=== PATIENT | male | born 1935 | race Caucasian/White ===

== ENCOUNTER 2017-05-12 22:13 | Observation (INO) ==
--- NOTE | 2017-05-12 23:12 | Emergency Department Note ---
Disposition Clinical Impression: Multifocal pneumonia, Multifocal atrial tachycardia Disposition: Admitted As Inpatient Condition: Good General Adult HPI - General Chief complaint: ED Altered Mental Status Stated complaint: AMS/leg pain Time Seen by Provider: 05/12/17 22:34 Source: patient Mode of arrival: EMS Limitations: altered mental status Nursing Notes Reviewed: Yes Vital Signs Reviewed: Yes - History of Present Illness HPI Narrative: 81-year-old male who family reports only has a significant medical history for dementia. They report that he is normally ambulatory in the home. They report they brought in the emergency department due to worsening confusion than baseline and fatigue. He was refusing to ambulate. They also noted worsening swelling and in his legs. They deny that he has a cardiac history. No history of atrial fibrillation. Pain Scale: 0 Improves with: nothing Worsens with: nothing Associated symptoms: Reports: denies other symptoms Treatments Prior to Arrival: none - Related Data Home Medications Medication Instructions Recorded Confirmed Donepezil [Aricept] 10 mg PO HS 12/06/15 05/13/17 Multivitamin [Multi-Day Vitamins] 1 tab PO DAILY 12/06/15 05/13/17 Ferrous Sulfate [Iron] 325 tab PO DAILY 05/13/17 05/13/17 Previous Rx's Medication Instructions Recorded Diphenhydramine HCl [Total Allergy] 12.5 mg PO Q8H PRN #20 tablet 12/10/15 Clindamycin HCl 300 mg PO Q6H #40 capsule 10/10/16 Allergies Allergy/AdvReac Type Severity Reaction Status Date / Time levofloxacin AdvReac Rash Verified 05/12/17 22:16 Limitations: ROS unobtainable due to patients medical condition (Dementia) Past Medical History - Past Medical History Medical history: Reports: dementia Surgical history: Reports: appendectomy Psychiatric history: Reports: no psych history - Social History Smoking Status: Former smoker Smokeless Tobacco Status: No Alcohol use: Reports: none Drug use: Reports: none Physical Exam - General Limitations: altered mental status General appearance: alert, in no apparent distress - Head Head exam: atraumatic - Eye Eye exam: Present: normal appearance, PERRL - ENT ENT exam: normal exam, normal oropharynx - Neck Neck exam: Present: normal inspection - Chest Chest inspection: Present: normal inspection - Respiratory Respiratory exam: Present: normal lung sounds bilaterally. Absent: respiratory distress - Cardiovascular Cardiovascular exam: Present: tachycardia, irregular rhythm - Abdominal Exam Abdominal exam: Present: soft, Non-Tender - Extremities Exam Extremities exam: Present: other (2+ pitting edema in bilateral lower extremities. No erythema/warmth) - Neurological Exam Neurological exam: Present: alert, other (dementia, not oriented. Answers questions inappropriately.) - Skin Skin exam: Present: warm, dry Course Course Narrative: His EKG is showing multifocal atrial tachycardia. Heart rate between 100 and 150. Blood pressure is maintained. I will go ahead and treat this with Cardizem. We will also look for possible inciting cause. Multifocal pneumonia is present on CTA. HR is controlled on cardizem. Will admit on cardizem and antibiotics. Vital Signs Temperature 98.5 F 05/12/17 22:16 Pulse Rate 119 05/12/17 22:16 Respiratory Rate 18 05/12/17 22:16 Blood Pressure 137/67 05/12/17 22:16 O2 Sat by Pulse Oximetry 93 05/12/17 22:16 Temperature 98.7 F 05/13/17 05:22 Pulse Rate 95 05/13/17 05:22 Respiratory Rate 16 05/13/17 05:22 Blood Pressure 101/45 05/13/17 05:22 O2 Sat by Pulse Oximetry 94 05/13/17 05:22 Oxygen Delivery Oxygen Delivery Nasal Cannula Medical Decision Making - Medical Records Medical records reviewed: Yes I reviewed the patient's medical records. - Lab Data Lab results reviewed: Yes I reviewed the patient's lab results. Result diagrams: 05/12/17 22:45 05/12/17 22:45 Lab Results 05/12/17 05/12/17 05/12/17 Range/Units 22:45 22:45 22:45 WBC 6.2 (4.3-11.1) K/mcL RBC 4.48 (4.19-5.50) M/mcL Hgb 11.9 L (12.9-16.9) g/dL Hct 37.7 (37.5-50.1) % MCV 84.2 (83.0-100.0) fL MCH 26.6 L (28.0-33.3) pg MCHC 31.6 (31.6-35.5) g/dL RDW 15.5 H (11.5-14.5) % Plt Count 114 L (140-400) K/mcL MPV 9.1 L (9.4-12.4) fL Immature Gran % 0.6 (0-4) % Seg Neutrophils % 87.3 % Lymphocytes % 6.6 % Monocytes % 5.3 % Eosinophils % 0.0 % Basophils % 0.2 % Neutrophils # 5.4 (1.6-8.9) K/mcL Lymphocytes # 0.4 L (0.6-4.6) K/mcL Monocytes # 0.3 (0.0-1.3) K/mcL Eosinophils # 0.0 (0.0-0.6) K/mcL Basophils # 0.0 (0.0-0.2) K/mcL PT 14.8 H (9.4-12.1) Seconds INR 1.4 APTT 31.6 (26.0-36.0) Seconds D-Dimer 1952 H (0-500) ng/mLFEU Sodium 132 L (136-145) mEq/L Potassium 4.1 (3.5-5.1) mEq/L Chloride 100 (98-107) mEq/L Carbon Dioxide 22 L (23-29) mEq/L BUN 20 (8-23) mg/dL Creatinine 0.92 (0.70-1.30) mg/dL Est GFR ( Amer) > 60 (> 60) Est GFR (Non-Af Amer) > 60 (> 60) BUN/Creatinine Ratio 22 (6-26) Glucose 135 H (70-105) mg/dL Calculated Osmolality 279 L (280-300) Calcium 8.9 (8.6-10.3) mg/dL Magnesium 1.6 (1.6-2.6) mg/dL Total Bilirubin 0.7 (0.3-1.0) mg/dL Direct Bilirubin 0.1 (0.0-0.2) mg/dL Indirect Bilirubin 0.6 (0.0-1.2) mg/dL AST 17 (13-39) Units/L ALT 12 (7-52) Units/L Alkaline Phosphatase 69 (34-104) Units/L Troponin I (< 0.04) ng/mL Serum Total Protein 5.9 L (6.4-8.9) g/dL Albumin 3.5 (3.5-5.7) g/dL Globulin 2.4 (2.4-3.5) g/dL Albumin/Globulin Ratio 1.5 (1.1-2.2) TSH 1.739 (0.340-5.600) mcIU/mL Ethyl Alcohol < 10 (0-10) mg/dL 05/12/17 Range/Units 22:45 WBC (4.3-11.1) K/mcL RBC (4.19-5.50) M/mcL Hgb (12.9-16.9) g/dL Hct (37.5-50.1) % MCV (83.0-100.0) fL MCH (28.0-33.3) pg MCHC (31.6-35.5) g/dL RDW (11.5-14.5) % Plt Count (140-400) K/mcL MPV (9.4-12.4) fL Immature Gran % (0-4) % Seg Neutrophils % % Lymphocytes % % Monocytes % % Eosinophils % % Basophils % % Neutrophils # (1.6-8.9) K/mcL Lymphocytes # (0.6-4.6) K/mcL Monocytes # (0.0-1.3) K/mcL Eosinophils # (0.0-0.6) K/mcL Basophils # (0.0-0.2) K/mcL PT (9.4-12.1) Seconds INR APTT (26.0-36.0) Seconds D-Dimer (0-500) ng/mLFEU Sodium (136-145) mEq/L Potassium (3.5-5.1) mEq/L Chloride (98-107) mEq/L Carbon Dioxide (23-29) mEq/L BUN (8-23) mg/dL Creatinine (0.70-1.30) mg/dL Est GFR ( Amer) (> 60) Est GFR (Non-Af Amer) (> 60) BUN/Creatinine Ratio (6-26) Glucose (70-105) mg/dL Calculated Osmolality (280-300) Calcium (8.6-10.3) mg/dL Magnesium (1.6-2.6) mg/dL Total Bilirubin (0.3-1.0) mg/dL Direct Bilirubin (0.0-0.2) mg/dL Indirect Bilirubin (0.0-1.2) mg/dL AST (13-39) Units/L ALT (7-52) Units/L Alkaline Phosphatase (34-104) Units/L Troponin I < 0.03 (< 0.04) ng/mL Serum Total Protein (6.4-8.9) g/dL Albumin (3.5-5.7) g/dL Globulin (2.4-3.5) g/dL Albumin/Globulin Ratio (1.1-2.2) TSH (0.340-5.600) mcIU/mL Ethyl Alcohol (0-10) mg/dL - Radiology Data Radiology results reviewed: Yes I reviewed the patient's radiology results. - EKG Data EKG #1 EKG attestation: Yes I reviewed and interpreted this EKG. When compared to previous EKG there are: changes noted Interpretation: other (Multifocal atrial tachycardia. Nonspecific ST-T wave changes.) Attestation Statement - Attestation Attestation: I examined this patient and my medical decision-making was reviewed with the Resident Physician. I agree with the documented findings, disposition and treatment plan as described except to the extent set forth below. Multifocal atrial tachycardia. Pneumonia. Antibiotics, Cardizem infusion. Admission for further evaluation.
[2017-05-12 23:13] LABS: Basophils % 0.2 %; Hematocrit 37.7 % (37.5-50.1); Hemoglobin 11.9 g/dL (12.9-16.9); Immature Granulocytes % 0.6 % (0-4); Lymphocytes # 0.4 K/mcL (0.6-4.6); Lymphocytes % 6.6 %; Mean Corpuscular HGB Conc 31.6 g/dL (31.6-35.5); Mean Corpuscular Hemoglobin 26.6 pg (28.0-33.3); Mean Corpuscular Volume 84.2 fL (83.0-100.0); Mean Platelet Volume 9.1 fL (9.4-12.4); Monocytes # 0.3 K/mcL (0.0-1.3); Monocytes % 5.3 %; Neutrophils # 5.4 K/mcL (1.6-8.9); Platelet Count 114 K/mcL (140-400); Red Blood Count 4.48 M/mcL (4.19-5.50); Red Cell Distribution Width 15.5 % (11.5-14.5); Segmented Neutrophils % 87.3 %
[2017-05-12 23:19] LABS: INR 1.4; Prothrombin Time 14.8 Seconds (9.4-12.1)
[2017-05-12 23:22] LABS: Activated Partial Thrombo Time 31.6 Seconds (26.0-36.0)
[2017-05-12 23:26] LABS: Ethanol < 10 mg/dL (0-10)
[2017-05-12] MEDS: dilTIAZem HCl 100 MG in D5% in Water 50 ML IVC SCH (23:29)
[2017-05-12 23:38] LABS: Alanine Aminotransferase 12 Units/L (7-52); Albumin 3.5 g/dL (3.5-5.7); Albumin/Globulin Ratio 1.5 (1.1-2.2); Alkaline Phosphatase 69 Units/L (34-104); Aspartate Amino Transferase 17 Units/L (13-39); BUN/Creatinine Ratio 22 (6-26); Bilirubin,Direct 0.1 mg/dL (0.0-0.2); Bilirubin,Indirect 0.6 mg/dL (0.0-1.2); Bilirubin,Total 0.7 mg/dL (0.3-1.0); Blood Urea Nitrogen 20 mg/dL (8-23); Calcium 8.9 mg/dL (8.6-10.3); Carbon Dioxide 22 mEq/L (23-29); Chloride 100 mEq/L (98-107); Globulin 2.4 g/dL (2.4-3.5); Glucose 135 mg/dL (70-105); Osmolality,Calculated 279 (280-300); Potassium 4.1 mEq/L (3.5-5.1); Sodium 132 mEq/L (136-145); Total Protein 5.9 g/dL (6.4-8.9); eGFR For African Americans > 60 (> 60); eGFR For Non-African Americans > 60 (> 60)
[2017-05-12 23:44] LABS: Thyroid Stimulating Hormone 1.739 mcIU/mL (0.340-5.600)
[2017-05-12 23:59] LABS: Magnesium 1.6 mg/dL (1.6-2.6)
[2017-05-13] MEDS ORDERED: Vancomycin 1,500 MG in D5% in Water 250 ML IVPB ONE (02:37)
[2017-05-13] MEDS ORDERED: Piperacillin/Tazobactam 3.375 GM in Water for inj. (sterile) 20 ML IVP ONE (02:37)
[2017-05-13] MEDS: dilTIAZem HCl 100 MG in D5% in Water 50 ML IVC SCH (05:15)
[2017-05-13 05:44] LABS: Bilirubin,Urine Negative (Negative); Blood,Urine Small (Negative); Clarity,Urine Clear (Clear); Color,Urine Yellow (Yellow); Glucose,Urine (UA) Normal (Normal); Ketones,Urine Trace mg/dL (Negative); Leukocyte Esterase,Urine Small (Negative); Nitrite,Urine Negative (Negative); Protein,Urine 30 mg/dL (Neg-Trace); Specific Gravity,Urine > 1.030 (1.010-1.025); Urobilinogen,Urine Normal (Normal)
[2017-05-13 05:47] LABS: Bacteria,Urine None Seen per hpf (None-Few); Hyaline Casts,Urine None Seen per lpf (None-Few); Squamous Epithelial Cell,Urine Many per lpf (None-Few); WBC,Urine 30-50 per hpf (0-3)
--- NOTE | 2017-05-13 06:40 | Internal Med History&Physical ---
Date of Encounter: 05/13/17 Time of Encounter: 06:30 Assessment and Plan (1) Multifocal pneumonia Current visit: Yes Status: Acute Seen on CT, with history of productive cough, shortness of breath. Received vanc and zosyn in ED. Patient lives at home and has not recently been hospitalized, so will deescalate antibiotics to ceftriaxone and azithromycin for CAP. - Ceftrixone and azithromycin - urine legionella and strep pneumo pending - Influenza pending - blood cultures pending - O2 PRN (2) Multifocal atrial tachycardia Current visit: Yes Status: Acute No history of arrhythmia. Rate controlled on diltiazem started in ED - Continue dilt gtt for now - Cardiology consulted, appreciate assistance - Trend troponin (3) Dementia Current visit: No Status: Chronic Acute worsening in setting of illness - Continue home meds Qualifiers: Dementia type: Alzheimer's disease Alzheimer's disease onset: unspecified onset Dementia behavioral disturbance: without behavioral disturbance Qualified Code(s): G30.9 - Alzheimer's disease, unspecified; F02.80 - Dementia in other diseases classified elsewhere without behavioral disturbance (4) Chronic venous stasis dermatitis of both lower extremities Current visit: Yes Status: Acute Improved with elevation, unlikely to have bilateral lower extremity cellulitis Internal Medicine - H&P: HPI Chief complaint: Confusion, shortness of breath Admitted From: Emergency Dept Plans for Post Hospital Care: Home History of present illness: Mr. Reynolds is a 81 year old male with history of dementia who presented to the ED this morning with family after he was found to be confused at home worse than baseline. His son who is present at bedside helps with history - he has apparently had cough and sinus drainage for the past couple of weeks, and his cough has recently worsened. Family has noticed that he is unsteady on his feet which is unusual for him. He has appeared very weak and has been more confused than normal. In the ED he had a CT of the chest which showed no evidence of PE but did show multifocal pneumonia. He was found to be tachycardic on arrival to the ED with MAT on EKG. His lower legs were both painful and red. His family notes that after the treatment he received in the ED (fluids, antibiotics, diltiazem), he is much improved and mentally appears to be almost back to baseline. He denies chest pain, abdominal pain, nausea, vomiting or diarrhea. Past Med Surg Social Fam HX - Past Medical History Medical history: dementia Psychiatric history: no psych history - Past Surgical History Surgical History: appendectomy - Social History Smoking Status: Former smoker Smokeless Tobacco Status: No Alcohol use: none Drug use: none - Family History Mother Adopted: [place]: Opal Reynolds Family Member Ethnicity: Non- Living Status: Age at : 40 Cause of : cancer Hx Family Cardiac Disorders: No Hx Family Respiratory Disorders: No Hx Family Cancer: Yes Hx Family GI Disorders: No Hx Family Endocrine Disorder: No Hx Family Neuromuscular Disorders: No Hx Family Neurologic Disorders: No Hx Family HEENT Disorders: No Hx Family Autoimmune Disorders: No Internal Medicine - H&P: Meds Donepezil [Aricept] 10 mg PO HS 12/06/15 [History] Multivitamin [Multi-Day Vitamins] 1 tab PO DAILY 12/06/15 [History] Diphenhydramine HCl [Total Allergy] 12.5 mg PO Q8H PRN #20 tablet 12/10/15 [Rx] Clindamycin HCl 300 mg PO Q6H #40 capsule 10/10/16 [Rx] Ferrous Sulfate [Iron] 325 tab PO DAILY 05/13/17 [History] 3 Allergy/AdvReac Type Severity Reaction Status Date / Time levofloxacin AdvReac Rash Verified 05/12/17 22:16 All Systems PM: A 10-system review of systems was performed and is negative for pertinent findings except as documented above in the HPI. - Constitutional Vitals: Temp Pulse Resp BP Pulse Ox 98.7 F 95 16 101/45 94 05/13/17 05:22 05/13/17 05:22 05/13/17 05:22 05/13/17 05:22 05/13/17 05:22 General appearance: Present: A&O X 3, pleasant, no acute distress - Head Head exam: Present: atraumatic - Eye Eye exam: Present: EOMI, sclera anicteric - ENT ENT exam: Present: mucous membranes moist - Neck Neck exam general surgery: Present: supple - Respiratory Respiratory exam: Present: CTAB - Cardiovascular Cardiovascular exam: Present: irregular rhythm. Absent: diastolic murmur, gallop, rubs, systolic murmur - GI/Abdominal GI/Abdominal exam: Present: normal bowel sounds, soft. Absent: distended, tenderness - Extremities Exam Extremities exam: Present: pedal edema (1-2+ edema with bilateral redness and warmth to mid calf) - Neurological Exam Neurological exam: Present: no focal deficits - Skin Skin exam: Absent: cyanosis, diaphoretic Internal Med - H&P Results - Labs CBC & Chem 7: 05/12/17 22:45 05/12/17 22:45 Labs: Urine 05/13/17 Range/Units 05:29 Urine Color Yellow (Yellow) Urine Clarity Clear (Clear) Urine pH 6.0 (5.0-8.0) pH Units Ur Specific [place] > 1.030 H (1.010-1.025) Urine Protein 30 H (Neg-Trace) mg/dL Urine Glucose (UA) Normal (Normal) mg/dL
[2017-05-13] MEDS: cefTRIAXone 1,000 MG in Water for inj. (sterile) 20 ML 10 ML IVP SCH (06:53)
[2017-05-13] MEDS: Azithromycin 500 MG in D5% in Water 250 ML IVPB SCH (06:54)
[2017-05-13] MEDS ORDERED: Piperacillin/Tazobactam 3.375 GM/200 ML BAG IVPB ONE (07:00)
--- NOTE | 2017-05-13 09:36 | Internal Med Progress Note ---
Date of Encounter: 05/13/17 Time of Encounter: 09:36 - Assessment and plan (1) Dementia Current Visit: Yes Status: Chronic Assessment and plan: Chronic, stable, continue home meds Qualifiers: Dementia type: Alzheimer's disease Alzheimer's disease onset: unspecified onset Dementia behavioral disturbance: without behavioral disturbance Qualified Code(s): G30.9 - Alzheimer's disease, unspecified; F02.80 - Dementia in other diseases classified elsewhere without behavioral disturbance (2) Multifocal pneumonia Current Visit: Yes Status: Acute Assessment and plan: Continue Cef/Azithromycin-day 1 Follow urine legionella/Strep pneumo Ag Continue supportive care (3) Multifocal atrial tachycardia Current Visit: Yes Status: Acute Assessment and plan: D/C cardizem drip Possibly secondary to pneumonia Transition to po Consider lopressor if blood pressure does not tolerate cardizem Obtain ECHO NO indication for cardiology eval at this time (4) Chronic venous stasis dermatitis of both lower extremities Current Visit: Yes Status: Chronic Assessment and plan: Chronic, stable, no evidence of cellulitis - Subjective Interval history: Seen and evaluated at bedside with spouse Admitted and being managed for multifocal pneumonia and MATs He has a PMH of Dementia, and is mostly at home, no recent admissions - Constitutional Vitals: Temp Pulse Resp BP Pulse Ox 98.3 F 95 18 110/62 92 05/13/17 06:56 05/13/17 06:56 05/13/17 06:56 05/13/17 06:56 05/13/17 06:56 General appearance: Present: A&O X 3, pleasant, no acute distress - Head Head exam: Present: atraumatic, normocephalic - Eye Eye exam: Present: PERRL, conjuntiva pink, sclera anicteric Pupils: Present: PERRL - Neck Neck exam general surgery: Present: supple, trachea midline. Absent: lymphadenopathy - Respiratory Respiratory exam: Present: rhonchi - Cardiovascular Cardiovascular exam: Present: RRR, +S1, +S2. Absent: diastolic murmur, gallop, rubs, systolic murmur - GI/Abdominal GI/Abdominal exam: Present: normal bowel sounds, soft, no peritoneal signs. Absent: distended, tenderness - Extremities Exam Extremities exam: Present: warm, radial pulses palpable and symmetrical. Absent : calf tenderness, cyanotic, pedal edema - Neurological Exam Neurological exam: Present: alert, CN II-XII intact, oriented X3, no focal deficits. Absent: pronater drift, facial droop, speech deficit - Skin Skin exam: Present: dry, intact Internal Medicine: Result - Labs CBC & Chem 7: 05/12/17 22:45 05/12/17 22:45 Labs: Cardiac Enzymes 05/13/17 Range/Units 07:06 Troponin I < 0.03 (< 0.04) ng/mL Urine 05/13/17 Range/Units 05:29 Urine Color Yellow (Yellow) Urine Clarity Clear (Clear) Urine pH 6.0 (5.0-8.0) pH Units Ur Specific [place] > 1.030 H (1.010-1.025) Urine Protein 30 H (Neg-Trace) mg/dL Urine Glucose (UA) Normal (Normal) mg/dL - ABG Interpretation ABG results: PT/INR, D-dimer PT 14.8 Seconds (9.4-12.1) H 05/12/17 22:45 D-Dimer 1952 ng/mLFEU (0-500) H 05/12/17 22:45 Consult Discharge Plan - Plan Referrals: Jayla Recinos, [employer] [Primary Care Provider] - (web request sent on 05/13/17)
[2017-05-13] MEDS: *HR* Heparin 5,000 UNIT/ML VIAL SQ SCH ×3 (09:57→20:42)
[2017-05-13] MEDS ORDERED: Haloperidol Lactate 5 MG/ML VIAL IVP PRN (14:50)
[2017-05-14] MEDS: *HR* Heparin 5,000 UNIT/ML VIAL SQ SCH (05:31)
[2017-05-14 05:42] LABS: Basophils % 0.3 %; Monocytes % 6.7 %
[2017-05-14 05:44] LABS: Eosinophils % 0.6 %; Hematocrit 32.3 % (37.5-50.1); Hemoglobin 10.2 g/dL (12.9-16.9); Immature Granulocytes % 1.5 % (0-4); Immature Platelets 2.7 % (1.1-6.1); Lymphocytes # 0.4 K/mcL (0.6-4.6); Lymphocytes % 11.8 %; Mean Corpuscular HGB Conc 31.6 g/dL (31.6-35.5); Mean Corpuscular Hemoglobin 26.4 pg (28.0-33.3); Mean Corpuscular Volume 83.7 fL (83.0-100.0); Mean Platelet Volume 10.2 fL (9.4-12.4); Monocytes # 0.2 K/mcL (0.0-1.3); Neutrophils # 2.6 K/mcL (1.6-8.9); Red Blood Count 3.86 M/mcL (4.19-5.50); Red Cell Distribution Width 15.7 % (11.5-14.5); Segmented Neutrophils % 79.1 %
[2017-05-14 05:54] LABS: Platelet Count 97 K/mcL (140-400)
[2017-05-14 05:56] LABS: BUN/Creatinine Ratio 23 (6-26); Blood Urea Nitrogen 19 mg/dL (8-23); Calcium 8.2 mg/dL (8.6-10.3); Carbon Dioxide 26 mEq/L (23-29); Chloride 103 mEq/L (98-107); Glucose 101 mg/dL (70-105); Osmolality,Calculated 282 (280-300); Potassium 3.8 mEq/L (3.5-5.1); Sodium 135 mEq/L (136-145); eGFR For African Americans > 60 (> 60); eGFR For Non-African Americans > 60 (> 60)
[2017-05-14] MEDS: Azithromycin 500 MG in D5% in Water 250 ML IVPB SCH (06:15)
[2017-05-14] MEDS: cefTRIAXone 1,000 MG in Water for inj. (sterile) 20 ML 10 ML IVP SCH (06:16)
[2017-05-14 10:33] VITALS: BP 95/50
--- NOTE | 2017-05-14 11:26 | Discharge Summary ---
Date of Encounter: 05/14/17 Time of Encounter: 11:24 - Discharge Diagnosis (1) Multifocal pneumonia Priority: Primary Status: Acute (2) Multifocal atrial tachycardia Priority: Primary Status: Resolved (3) Dementia Priority: Secondary Status: Chronic Qualifiers: Dementia type: Alzheimer's disease Alzheimer's disease onset: unspecified onset Dementia behavioral disturbance: without behavioral disturbance Qualified Code(s): G30.9 - Alzheimer's disease, unspecified; F02.80 - Dementia in other diseases classified elsewhere without behavioral disturbance; F02.80 - Dementia in other diseases classified elsewhere without behavioral disturbance; F02.80 - Dementia in other diseases classified elsewhere without behavioral disturbance (4) Chronic venous stasis dermatitis of both lower extremities Priority: Secondary Status: Chronic - Discharge Medications Prescriptions: Azithromycin [Zithromax Tri-Maxi] 500 mg PO DAILY #3 tablet Cefdinir [Omnicef] 300 mg PO DAILY #5 capsule Metoprolol [Lopressor] 12.5 mg PO BID #60 tablet Home Medications: Donepezil [Aricept] 10 mg PO HS 12/06/15 [History] Multivitamin [Multi-Day Vitamins] 1 tab PO DAILY 12/06/15 [History] Ferrous Sulfate [Iron] 325 tab PO DAILY 05/13/17 [History] Azithromycin [Zithromax Tri-Maxi] 500 mg PO DAILY #3 tablet 05/14/17 [Rx] Cefdinir [Omnicef] 300 mg PO DAILY #5 capsule 05/14/17 [Rx] Metoprolol [Lopressor] 12.5 mg PO BID #60 tablet 05/14/17 [Rx] Allergies/Adverse Reactions: 3 Allergy/AdvReac Type Severity Reaction Status Date / Time levofloxacin AdvReac Rash Verified 05/12/17 22:16 Procedures/tests Complete & Pending: Procedures Performed prior 72 hours Category Date Time Status EKG [ECG 12 lead ECG] [ECG] Stat Y 05/13/17 13:09 Completed EV echocardiogram Routine Y 05/13/17 08:13 Completed Date of admission: 05/13/17 03:06 Primary care physician: Jayla Recinos CNP Consults: 05/13/17 06:31 Consult to Nurse Navigator [CONS] Routine Comment: 05/13/17 08:16 Consult to Occupational Therapy [CONS] Routine Comment: Evaluate, develop and implement POC Reason for Consult: Weakness Consult to Physical Therapy [CONS] Routine Comment: Evaluate, develop and implement POC Reason for Consult: Weakness 05/14/17 06:47 Consult to Warehouse Worker 2Nd Shift [CONS] Routine Reason for SW Consult: is his primary home day care provider. [facility] nurse stated that SS was going to talk to the about options for home health but there was no consult. Discharging clinician: David Matute Anticipated date of discharge: 05/14/17 - Patient Status Disposition: Home, Self-Care Condition: Good Functional capacity at discharge: independent ambulation Overall status at discharge: patient is back to baseline - Ambulatory Orders Ambulatory Orders: ECG holter monitor [ECG] Time Frame: 2 Days, Facility: [facility], Location: Cardiopulmonary Svc - Discharge Instructions Instructions: Metoprolol (By mouth), Azithromycin (By mouth), Cefdinir (By mouth), Atrial Tachycardia (DC), Pneumonia (DC) Follow Up With: Jayla Recinos CNP [Primary Care Provider] - 05/20/17 1:00 pm () - Diet and Activity Activity: resume usual activities as tolerated Diet: low salt diet Interval History: See below Hospital course: Mr. Reynolds is a 81 year old male was admitted for management of community- acquired pneumonia, complicated by multifocal-atrial tachycardia. He has a past medical history of dementia. Patient's tachycardia resolved with institution of intravenous Cardizem, however his blood pressure could not tolerate the oral form of same. Patient was started on intravenous antibiotics-ceftriaxone and azithromycin Urinary Legionella and streptococcal antigen were sent. Patient's urinary workup was positive for streptococcal antigen. Patient is seen and evaluated at the bedside this morning, he reports his inguinal state of health, his reports is back to baseline, clinically he has improved. He has had no fevers, his workup was unremarkable. Echocardiogram done was poor quality. Complete blood count this morning's Center for now. Patient has remained afebrile. He guarding the multifocal atrial tachycardia he has been controlled on metoprolol by mouth. TSH was normal, and electrolytes within normal limits. The patient is stable medically to be discharged to complete 7 days of Omnicef, and 5 days of azithromycin. Primary care doctor. He is discharged also on Holter monitoring for 48 hours. Echocardiogram is recommended to be repeated as outpatient. Plan of care discussed with the patient and his at the bedside who verbalized understanding. Time spent discussing smoking cessation with patient: 3 to 10 minutes - Time Spent with Patient Total time spent providing and/or coordinating discharge services: Greater than 30 minutes - Constitutional Vitals: Temp Pulse Resp BP Pulse Ox 97.8 F 82 16 95/50 93 05/14/17 10:30 05/14/17 10:30 05/14/17 10:30 05/14/17 10:30 05/14/17 10:30 General appearance: Present: A&O X 3, pleasant, no acute distress - Head Head exam: Present: atraumatic, normocephalic - Eye Eye exam: Present: PERRL, conjuntiva pink, sclera anicteric Pupils: Present: PERRL - Neck Neck exam general surgery: Present: supple, trachea midline. Absent: lymphadenopathy - Respiratory Respiratory exam: Present: rhonchi. Absent: accessory muscle use, rales, wheezes - Cardiovascular Cardiovascular exam: Present: RRR, +S1, +S2. Absent: diastolic murmur, gallop, rubs, systolic murmur - GI/Abdominal GI/Abdominal exam: Present: normal bowel sounds, soft, no peritoneal signs. Absent: distended, tenderness - Extremities Exam Extremities exam: Present: warm, radial pulses palpable and symmetrical. Absent : calf tenderness, cyanotic, pedal edema Additional comments: Chronic venostasis dermatitis. No evidence of cellulitis. - Neurological Exam Neurological exam: Present: alert, CN II-XII intact, oriented X3, no focal deficits. Absent: pronater drift, facial droop, speech deficit - Skin Skin exam: Present: dry, intact
--- NOTE | 2017-05-14 19:32 | Electrocardiograph Report ---
[address] [address] Test Date: 2017-05-12 Pat Name: Pete Reynolds Department: 104 Room: 2A13 Gender: M Actimize Architect: SAURAV : 1935 Requested By: Ludwig Louis Order Number: [id number] Reading MD: Rupert Bullock MD Measurements Intervals [place] Rate: 120 P: 55 SD: 116 QRS: -16 QRSD: 91 T: -41 QT: 366 QTc: 437 Interpretive Statements MULTIFOCAL ATRIAL TACHYCARDIA Electronically Signed On 05-14-2017 19:31:28 EST by Rupert Bullock MD
--- NOTE | 2017-05-15 07:25 | Electrocardiograph Report ---
[place] [id number] Test Date: 2017-05-13 Pat Name: Pete Reynolds Department: 112 Room: 2A13 Gender: M Boning Room Worker: DIEGO : 1935 Requested By: David Matute Order Number: [id number] Reading MD: Rupert Bullock MD Measurements Intervals [place] Rate: 112 P: TN: 0 QRS: -15 QRSD: 93 T: 56 QT: 346 QTc: 412 Interpretive Statements ATRIAL FIBRILLATION WITH RAPID VENTRICULAR RESPONSE Electronically Signed On 05-15-2017 7:23:38 EST by Rupert Bullock MD
== END 2017-05-14 14:00 | disposition home or self-care (01) ==
LOC: 2ANU 22:13 → EMEROO 22:13 → 2ANU 05-13 04:42
PROVIDERS: ADMIT Internal Medicine; ATTEND Internal Medicine

== ENCOUNTER 2017-10-09 14:08 | Inpatient (IN) ==
--- NOTE | 2017-10-09 14:20 | Emergency Department Note ---
Disposition Clinical Impression: Pneumothorax, Hypoxia Disposition: Admitted As Inpatient Condition: Good General Adult HPI - General Chief complaint: ED Shortness of Breath/Dyspnea Stated complaint: cough Time Seen by Provider: 10/09/17 14:15 - History of Present Illness Pain Scale: 0 - Related Data Home Medications Medication Instructions Recorded Confirmed Ferrous Sulfate [Iron] 325 tab PO DAILY 05/13/17 10/09/17 Donepezil [Aricept] 10 mg PO DAILY 10/09/17 10/09/17 Multivit-Min/FA/Lycopen/Lutein [A 1 tab PO DAILY 10/09/17 10/09/17 Thru Z Select Multivit Tab] Previous Rx's Medication Instructions Recorded Metoprolol [Lopressor] 12.5 mg PO BID #60 tablet 05/14/17 Allergies Allergy/AdvReac Type Severity Reaction Status Date / Time levofloxacin AdvReac Rash Verified 05/12/17 22:16 Past Medical History - Past Medical History Medical history: Reports: dementia Surgical history: Reports: appendectomy Psychiatric history: Reports: no psych history - Social History Smoking Status: Former smoker Smokeless Tobacco Status: No Alcohol use: Reports: none Drug use: Reports: none Course Vital Signs Temperature 98.5 F 10/09/17 14:10 Pulse Rate 114 10/09/17 14:10 Respiratory Rate 24 10/09/17 14:10 Blood Pressure 117/91 10/09/17 14:10 O2 Sat by Pulse Oximetry 83 10/09/17 14:10 Temperature 97.7 F 10/09/17 17:07 Pulse Rate 96 10/09/17 17:07 Respiratory Rate 15 10/09/17 17:07 Blood Pressure 137/74 10/09/17 17:07 O2 Sat by Pulse Oximetry 93 10/09/17 17:10 Oxygen Delivery Oxygen Delivery [1600] Aerosol Mask Oxygen Delivery [1554] Aerosol Mask Oxygen Delivery [1545] Aerosol Mask Oxygen Delivery [1542] Aerosol Mask Oxygen Delivery [1540] Aerosol Mask Oxygen Delivery Aerosol Mask Procedures - Procedural Sedation Indication: other H&P (including ROS) documented in medical record: Yes Previous reaction to sedatives/anesthetics: No Dentition: No loose teeth or bridges Airway Assessment: Patient can open mouth completely, TMJ function normal Possible difficult airway: No ASA Classification: CLASS III-Severe systemic disease Preparation: monitoring manager applied, pulse oximeter, capnometry used, supplemental O2 applied, suction/airway equipment at bedside, IV secured Fentanyl: IV Midazolam: IV Ketamine: IV Patient Tolerated Procedure: well, no complications Complications: none Medical Decision Making - Lab Data Result diagrams: 10/09/17 14:21 10/09/17 14:21 Lab Results 10/09/17 10/09/17 10/09/17 Range/Units 14:21 14:21 14:21 WBC 6.3 (4.3-11.1) K/mcL RBC 4.92 (4.19-5.50) M/mcL Hgb 14.5 (12.9-16.9) g/dL Hct 42.9 (37.5-50.1) % MCV 87.2 (83.0-100.0) fL MCH 29.5 (28.0-33.3) pg MCHC 33.8 (31.6-35.5) g/dL RDW 15.6 H (11.5-14.5) % Plt Count 166 (140-400) K/mcL MPV 10.0 (9.4-12.4) fL Immature Gran % 0.5 (0-4) % Seg Neutrophils % 75.8 % Lymphocytes % 14.7 % Monocytes % 7.9 % Eosinophils % 0.8 % Basophils % 0.3 % Neutrophils # 4.8 (1.6-8.9) K/mcL Lymphocytes # 0.9 (0.6-4.6) K/mcL Monocytes # 0.5 (0.0-1.3) K/mcL Eosinophils # 0.1 (0.0-0.6) K/mcL Basophils # 0.0 (0.0-0.2) K/mcL Sodium 139 (136-145) mEq/L Potassium 3.9 (3.5-5.1) mEq/L Chloride 102 (98-107) mEq/L Carbon Dioxide 27 (23-29) mEq/L BUN 19 (8-23) mg/dL Creatinine 0.86 (0.70-1.30) mg/dL Est GFR ( Amer) > 60 (> 60) Est GFR (Non-Af Amer) > 60 (> 60) BUN/Creatinine Ratio 22 (6-26) Glucose 105 (70-105) mg/dL Calculated Osmolality 291 (280-300) Lactic Acid (0.5-2.2) mmol/L Calcium 9.6 (8.6-10.3) mg/dL Troponin I < 0.03 (< 0.04) ng/mL B-Natriuretic Peptide 131 H (Less than 100) pg/mL 10/09/17 Range/Units 14:35 WBC (4.3-11.1) K/mcL RBC (4.19-5.50) M/mcL Hgb (12.9-16.9) g/dL Hct (37.5-50.1) % MCV (83.0-100.0) fL MCH (28.0-33.3) pg MCHC (31.6-35.5) g/dL RDW (11.5-14.5) % Plt Count (140-400) K/mcL MPV (9.4-12.4) fL Immature Gran % (0-4) % Seg Neutrophils % % Lymphocytes % % Monocytes % % Eosinophils % % Basophils % % Neutrophils # (1.6-8.9) K/mcL Lymphocytes # (0.6-4.6) K/mcL Monocytes # (0.0-1.3) K/mcL Eosinophils # (0.0-0.6) K/mcL Basophils # (0.0-0.2) K/mcL Sodium (136-145) mEq/L Potassium (3.5-5.1) mEq/L Chloride (98-107) mEq/L Carbon Dioxide (23-29) mEq/L BUN (8-23) mg/dL Creatinine (0.70-1.30) mg/dL Est GFR ( Amer) (> 60) Est GFR (Non-Af Amer) (> 60) BUN/Creatinine Ratio (6-26) Glucose (70-105) mg/dL Calculated Osmolality (280-300) Lactic Acid 1.2 (0.5-2.2) mmol/L Calcium (8.6-10.3) mg/dL Troponin I (< 0.04) ng/mL B-Natriuretic Peptide (Less than 100) pg/mL Critical Care Time Critical Care Time: Yes Total Critical Care Time: 30 Attestation: The high probability of a clinically significant, sudden or life threatening deterioration of the [] system(s) required my full and direct attention, intervention and personal management. The aggregate critical care time was [] minutes. This time is in addition to time spent performing reported procedures but includes the following: [] Data Review and interpretation [] Patient assessment and monitoring of vital signs [] Documentation [] Medication orders and management Attestation Statement - Attestation Attestation: I examined this patient and my medical decision-making was reviewed with the Resident Physician. I agree with the documented findings, disposition and treatment plan as described except to the extent set forth below. [id number] time provided Patient c/o dyspnea and cough. Patient is not home oxygen dependent. Increased work of breathing on exam. Pulse ox in the low 80's on RA. Patient evaluated in conjunction with Dr. Richardson 15:05: patient with PTX. will consent for tube thoracostomy 15:20: The patient does not seem capable of making an informed decision. He is verbally abusive to his children at bedside. He states he wants to go home. He seems demented and unable to understand my instructions. Per my discussion with the family, the patient's spouse usually makes his decisions for him. However this is impossible at this time because she is currently hospitalized at a different facility. The son is acting on his patient's best behalf and signing consent for the tube thoracostomy. I feel that placing the tube thoracostomy is in the patient's best interest and could be life saving and is indicated given that the patient currently is incapable of caring for himself and making an educated decision. account services specialist has been asked to evaluate as well.
[2017-10-09] MEDS ORDERED: 0.9 % Sodium Chloride 1,000 ML IVC ONE (14:22)
[2017-10-09] MEDS ORDERED: Aspirin 325 MG TABLET PO ONE (14:22)
--- NOTE | 2017-10-09 14:22 | Emergency Department Note ---
Disposition Clinical Impression: Hypoxia Pneumothorax Qualifiers: Pneumothorax type: unspecified pneumothorax Qualified Code(s): J93.9 - Pneumothorax, unspecified Disposition: Admitted As Inpatient Condition: Good Referrals: Jayla Recinos CNP [Primary Care Provider] - Forms: ED Satisfaction Letter Time of Disposition: 16:13 SOB HPI - General Chief Complaint: ED Shortness of Breath/Dyspnea Stated Complaint: cough Time Seen by Provider: 10/09/17 14:15 Source: patient, family Mode of arrival: ambulatory Limitations: no limitations Nursing Notes Reviewed: Yes Vital Signs Reviewed: Yes - History of Present Illness Patient is an 82-year-old male with past medical history of dementia, "fast heart rate" the family denies any history of A. fib or the patient being on blood thinners. He presents today due to shortness of breath and low oxygen saturation. Family states that the patient has no history of any CHF, COPD, is not on any oxygen at home and does not use any inhalers. He was short of breath for the past 1-2 days, has had a productive cough. Due to dementia, patient has been refusing to come to the ER for evaluation. The patient himself denies any chest pain, nausea, vomiting, fevers, diarrhea, abdominal pain. He does admit to some dyspnea that is worse with exertion. - Related Data Home Medications Medication Instructions Recorded Confirmed Ferrous Sulfate [Iron] 325 tab PO DAILY 05/13/17 10/09/17 Donepezil [Aricept] 10 mg PO DAILY 10/09/17 10/09/17 Multivit-Min/FA/Lycopen/Lutein [A 1 tab PO DAILY 10/09/17 10/09/17 Thru Z Select Multivit Tab] Previous Rx's Medication Instructions Recorded Metoprolol [Lopressor] 12.5 mg PO BID #60 tablet 05/14/17 Allergies Allergy/AdvReac Type Severity Reaction Status Date / Time levofloxacin AdvReac Rash Verified 05/12/17 22:16 All systems ED: reviewed and negative except as stated. Constitutional: Denies: fever Cardiovascular: Denies: chest pain Respiratory: Reports: cough, dyspnea, sputum production Gastrointestinal: Denies: abdominal pain, nausea, vomiting Genitourinary: Denies: urgency, dysuria Integumentary: Denies: rash Neurological: Denies: headache, weakness, numbness Past Medical History - Past Medical History Attestation: Yes The following information was validated with the patient. Source: patient Medical history: Reports: dementia Surgical history: Reports: appendectomy Psychiatric history: Reports: no psych history - Social History Smoking Status: Former smoker Smokeless Tobacco Status: No Alcohol use: Reports: none Drug use: Reports: none Physical Exam - General Limitations: no limitations General appearance: alert, in no apparent distress - Head Head exam: atraumatic, normocephalic, normal inspection - Eye Eye exam: Present: normal appearance, PERRL, EOMI - ENT ENT exam: normal exam, normal oropharynx, mucous membranes moist - Neck Neck exam: Present: normal inspection, full ROM, trachea midline - Chest Chest inspection: Present: normal inspection, symmetric chest wall rise - Respiratory Respiratory exam: Present: respiratory distress (Multiple moderate, increased accessory muscle use.), other (Decreased lung sounds in bilateral lower lobes but no major wheezes or crackles. ) - Cardiovascular Cardiovascular exam: Present: regular rate, normal rhythm, normal heart sounds - Abdominal Exam Abdominal exam: Present: soft, Non-Tender. Absent: tenderness, distention, guarding, rebound, rigidity - Extremities Exam Extremities exam: Present: normal inspection, full ROM. Absent: tenderness, pedal edema - Neurological Exam Neurological exam: Present: alert - Expanded Neurological Exam Patient oriented to: Present: person, place Speech: Present: fluid speech Cranial nerves: EOM function (II, III, IV, ): Normal, facial sensation (V): Normal, facial palsy (VII): Normal, spinal accessory function (XI): Normal, tongue deviation (XII): Normal Motor strength - LUE: 5/5 Motor strength - RUE: 5/5 Motor strength - LLE: 5/5 Motor strength - RLE: 5/5 Sensory exam upper extremity: light touch: Normal Sensory exam lower extremity: light touch: Normal Coma Scale Eye Opening: Spontaneous Coma Scale Motor Response: Obeys Commands Coma Scale Verbal Response: Confused Coma Scale Total: 14 - Psychiatric Psychiatric exam: Present: normal affect, normal mood - Skin Skin exam: Present: warm, dry, intact, normal color Course Course Narrative: Patient was tachycardic on presentation, family states that this is near baseline for the patient. We will go ahead and give 1 L normal saline bolus. He was in mild to moderate respiratory distress, oxygen saturation 85%. Decreased lung sounds bilateral lower lobes but no overt wheezes or crackles. We will give the patient DuoNeb 3. We will also obtain chest x-ray, EKG, troponin, basic blood work. Currently concern mainly for pneumonia at this time due to history of productive cough in conjunction with hypoxia. Patient has been placed on 2-3 L nasal nasal cannula at this time to keep O2 sat above 88%. 15:18 CXR shows large pneumo on right. patient is confused on exam, cannot recognize Her Daughter at Bedside. Does not have capacity to make medical decisions for himself. He was refusing chest tube, however, son and daughter at bedside and wants to proceed with chest tube. His is in the hospital and not able to be contacted at this time. They are the next of kin. Acting in patient's best interest at this time. 16:09 chest tube inserted. Post procedure x-ray shows reinflation of right lung, chest tube in correct place. We will proceed with admission. Thoracic has been consulted. We will admit to Dr. Silverio at this time. Vital Signs Temperature 98.5 F 10/09/17 14:10 Pulse Rate 114 10/09/17 14:10 Respiratory Rate 24 10/09/17 14:10 Blood Pressure 117/91 10/09/17 14:10 O2 Sat by Pulse Oximetry 83 10/09/17 14:10 Temperature 98.5 F 10/09/17 14:21 Pulse Rate 111 10/09/17 15:28 Respiratory Rate 18 10/09/17 15:28 Blood Pressure 185/112 10/09/17 15:28 O2 Sat by Pulse Oximetry 96 10/09/17 15:28 Oxygen Delivery Oxygen Delivery Room Air Procedures - Chest Tube Chest Tube 1 Chest Tube Location: right Size of Tube (cm): 16 (8 wallisian) Chest Tube Prep: sterile drapes applied, other Local Anesthetic: lidocaine 1% Amount of Anesthesia Used (mL): 3 Incision Made With: #10 blade Post Procedure: sutured to skin Tube Drainage: other (air) Post Procedure CXR?: Yes Patient Tolerated Procedure: Yes Progress: Performed by Dr. Richardson, supervised by Dr. Staton Shortness of Breath/Dyspnea - MDM Narrative Medical decision making narrative: Patient was tachycardic on presentation, family states that this is near baseline for the patient. We will go ahead and give 1 L normal saline bolus. He was in mild to moderate respiratory distress, oxygen saturation 85%. Decreased lung sounds bilateral lower lobes but no overt wheezes or crackles. We will give the patient DuoNeb 3. We will also obtain chest x-ray, EKG, troponin, basic blood work. Currently concern mainly for pneumonia at this time due to history of productive cough in conjunction with hypoxia. Patient has been placed on 2-3 L nasal nasal cannula at this time to keep O2 sat above 88%. 15:18 Trop negative. CXR shows large pneumo on right. patient is confused on exam, cannot recognize Her Daughter at Bedside. Does not have capacity to make medical decisions for himself. He was refusing chest tube, however, son and daughter at bedside and wants to proceed with chest tube. His is in the hospital and not able to be contacted at this time. They are the next of kin. Acting in patient's best interest at this time. 16:09 chest tube inserted. Post procedure x-ray shows reinflation of right lung, chest tube in correct place. We will proceed with admission. Thoracic has been consulted. We will admit to Dr. Silverio at this time. - Medical Records Medical records reviewed: Yes I reviewed the patient's medical records. - Lab Data Lab results reviewed: Yes I reviewed the patient's lab results. Result diagrams: 10/09/17 14:21 10/09/17 14:21 Lab Results 10/09/17 10/09/17 10/09/17 Range/Units 14:21 14:21 14:21 WBC 6.3 (4.3-11.1) K/mcL RBC 4.92 (4.19-5.50) M/mcL Hgb 14.5 (12.9-16.9) g/dL Hct 42.9 (37.5-50.1) % MCV 87.2 (83.0-100.0) fL MCH 29.5 (28.0-33.3) pg MCHC 33.8 (31.6-35.5) g/dL RDW 15.6 H (11.5-14.5) % Plt Count 166 (140-400) K/mcL MPV 10.0 (9.4-12.4) fL Immature Gran % 0.5 (0-4) % Seg Neutrophils % 75.8 % Lymphocytes % 14.7 % Monocytes % 7.9 % Eosinophils % 0.8 % Basophils % 0.3 % Neutrophils # 4.8 (1.6-8.9) K/mcL Lymphocytes # 0.9 (0.6-4.6) K/mcL Monocytes # 0.5 (0.0-1.3) K/mcL Eosinophils # 0.1 (0.0-0.6) K/mcL Basophils # 0.0 (0.0-0.2) K/mcL Sodium 139 (136-145) mEq/L Potassium 3.9 (3.5-5.1) mEq/L Chloride 102 (98-107) mEq/L Carbon Dioxide 27 (23-29) mEq/L BUN 19 (8-23) mg/dL Creatinine 0.86 (0.70-1.30) mg/dL Est GFR ( Amer) > 60 (> 60) Est GFR (Non-Af Amer) > 60 (> 60) BUN/Creatinine Ratio 22 (6-26) Glucose 105 (70-105) mg/dL Calculated Osmolality 291 (280-300) Lactic Acid (0.5-2.2) mmol/L Calcium 9.6 (8.6-10.3) mg/dL Troponin I < 0.03 (< 0.04) ng/mL B-Natriuretic Peptide 131 H (Less than 100) pg/mL 10/09/17 Range/Units 14:35 WBC (4.3-11.1) K/mcL RBC (4.19-5.50) M/mcL Hgb (12.9-16.9) g/dL Hct (37.5-50.1) % MCV (83.0-100.0) fL MCH (28.0-33.3) pg MCHC (31.6-35.5) g/dL RDW (11.5-14.5) % Plt Count (140-400) K/mcL MPV (9.4-12.4) fL Immature Gran % (0-4) % Seg Neutrophils % % Lymphocytes % % Monocytes % % Eosinophils % % Basophils % % Neutrophils # (1.6-8.9) K/mcL Lymphocytes # (0.6-4.6) K/mcL Monocytes # (0.0-1.3) K/mcL Eosinophils # (0.0-0.6) K/mcL Basophils # (0.0-0.2) K/mcL Sodium (136-145) mEq/L Potassium (3.5-5.1) mEq/L Chloride (98-107) mEq/L Carbon Dioxide (23-29) mEq/L BUN (8-23) mg/dL Creatinine (0.70-1.30) mg/dL Est GFR ( Amer) (> 60) Est GFR (Non-Af Amer) (> 60) BUN/Creatinine Ratio (6-26) Glucose (70-105) mg/dL Calculated Osmolality (280-300) Lactic Acid 1.2 (0.5-2.2) mmol/L Calcium (8.6-10.3) mg/dL Troponin I (< 0.04) ng/mL B-Natriuretic Peptide (Less than 100) pg/mL - Radiology Data Radiology results reviewed: Yes I reviewed the patient's radiology results. - EKG Data EKG attestation: Yes I reviewed and interpreted this EKG. EKG results narrative: 10/09/2017 at 14:16. Sinus tachycardia. Rate 106. W[place] 149. QRS 92. QTC 408. Left axis deviation. No acute ST elevation or depression. T-wave inversion in lead V2 that is new for the patient compared to previous EKG. Previous EKG was on 05/14/2017 at 12 59. S.B.A.R. - S.B.A.R. Situation: Demographics, MOA Background: Presenting Complaint, Relevant PMH, Meds, & Allergies Assessment: Vital Signs, Course and respsone to treatment, Exam Concerns, Patient/Family Expectation, Pertinant Lab Results, Outstanding Labs Recommendation: Barrier(s) to disposition, Recommendation based on pending studies, treatments, or consults S.B.A.R. Report Given to: Dr. Silverio
[2017-10-09] MEDS ORDERED: Ipratropium/Albuterol Neb 3 ML IH ONE (14:23)
[2017-10-09 14:42] LABS: Basophils % 0.3 %; Eosinophils # 0.1 K/mcL (0.0-0.6); Eosinophils % 0.8 %; Hematocrit 42.9 % (37.5-50.1); Hemoglobin 14.5 g/dL (12.9-16.9); Immature Granulocytes % 0.5 % (0-4); Lymphocytes # 0.9 K/mcL (0.6-4.6); Lymphocytes % 14.7 %; Mean Corpuscular HGB Conc 33.8 g/dL (31.6-35.5); Mean Corpuscular Hemoglobin 29.5 pg (28.0-33.3); Mean Corpuscular Volume 87.2 fL (83.0-100.0); Monocytes # 0.5 K/mcL (0.0-1.3); Monocytes % 7.9 %; Neutrophils # 4.8 K/mcL (1.6-8.9); Platelet Count 166 K/mcL (140-400); Red Blood Count 4.92 M/mcL (4.19-5.50); Red Cell Distribution Width 15.6 % (11.5-14.5); Segmented Neutrophils % 75.8 %
[2017-10-09] MEDS ORDERED: *HR* Midazolam HCl 2 MG/2 ML VIAL IVP ONE ×2 (15:10→15:56)
[2017-10-09] MEDS ORDERED: *HR* FentaNYL (PF) 100 MCG/2 ML VIAL IVP ONE (15:10)
[2017-10-09 15:33] LABS: Troponin I < 0.03 ng/mL (< 0.04)
[2017-10-09 15:34] LABS: BUN/Creatinine Ratio 22 (6-26); Blood Urea Nitrogen 19 mg/dL (8-23); Calcium 9.6 mg/dL (8.6-10.3); Carbon Dioxide 27 mEq/L (23-29); Chloride 102 mEq/L (98-107); Glucose 105 mg/dL (70-105); Osmolality,Calculated 291 (280-300); Potassium 3.9 mEq/L (3.5-5.1); Sodium 139 mEq/L (136-145); eGFR For African Americans > 60 (> 60); eGFR For Non-African Americans > 60 (> 60)
[2017-10-09] MEDS: *HR* FentaNYL (PF) 100 MCG/2 ML VIAL ONE ×2 (15:45→16:13)
--- NOTE | 2017-10-09 18:40 | Internal Med History&Physical ---
Date of Encounter: 10/09/17 Time of Encounter: 19:35 Internal Medicine - H&P: HPI Chief complaint: SOB History of present illness: Mr. Reynolds is a 82 year old male with past medical history of dementia, CHF, COPD who presents with shortness of breath and low oxygen saturation and productive cough as well as dyspnea that is worse with exertion. Patient was evaluated by the ER staff and was found to be tachycardic and hypoxic on presentation, CXR shows large pneumo on right. chest tube was inserted. Post procedure x-ray shows reinflation of right lung and was admitted for further evaluation. Past Med Surg Social Fam HX - Past Medical History Medical history: dementia Psychiatric history: no psych history - Past Surgical History Surgical History: appendectomy - Social History Smoking Status: Former smoker Smokeless Tobacco Status: No Alcohol use: none Drug use: none - Family History Mother Adopted: No Family Member Ethnicity: Non- Living Status: Hx Family Cardiac Disorders: No Hx Family Respiratory Disorders: No Hx Family Cancer: Yes Hx Family GI Disorders: No Hx Family Endocrine Disorder: No Hx Family Neuromuscular Disorders: No Hx Family Neurologic Disorders: No Hx Family HEENT Disorders: No Hx Family Autoimmune Disorders: No Internal Medicine - H&P: Meds Ferrous Sulfate [Iron] 325 tab PO DAILY 05/13/17 [History] Metoprolol [Lopressor] 12.5 mg PO BID #60 tablet 05/14/17 [Rx] Donepezil [Aricept] 10 mg PO DAILY 10/09/17 [History] Multivit-Min/FA/Lycopen/Lutein [A Thru Z Select Multivit Tab] 1 tab PO DAILY [History] 3 Allergy/AdvReac Type Severity Reaction Status Date / Time levofloxacin AdvReac Rash Verified 05/12/17 22:16 All Systems PM: A 10-system review of systems was performed and is negative for pertinent findings except as documented above in the HPI. - Constitutional Constitutional: no chills, no fever(s), no night sweats - Cardiovascular Cardiovascular ROS IM: dyspnea, dyspnea on exertion, no chest pain, no diaphoresis, no lightheadedness, no palpitations, no syncope - Respiratory Respiratory: cough, dyspnea, no wheezing, no excessive phlegm production - Gastrointestinal Gastrointestinal: no abdominal pain, no diarrhea, no hematemesis, no hematochezia, no melena, no nausea, no vomiting - Neurological Neurological ROS: no confusion, no convulsions, no focal weakness, no numbness, no tingling, no tremor(s) - Constitutional Vitals: Temp Pulse Resp BP Pulse Ox 97.7 F 96 15 137/74 93 10/09/17 17:07 10/09/17 17:07 10/09/17 17:07 10/09/17 17:07 10/09/17 17:10 General appearance: Present: A&O X 3 - Head Head exam: Present: atraumatic, normocephalic - Neck Neck exam general surgery: Present: supple, trachea midline. Absent: lymphadenopathy - Respiratory Respiratory exam: Present: CTAB. Absent: accessory muscle use, rales, rhonchi, wheezes - Cardiovascular Cardiovascular exam: Present: RRR, +S1, +S2. Absent: diastolic murmur, gallop, rubs, systolic murmur - GI/Abdominal GI/Abdominal exam: Present: normal bowel sounds, soft, no peritoneal signs. Absent: distended, tenderness - Extremities Exam Extremities exam: Present: warm, radial pulses palpable and symmetrical. Absent : calf tenderness, cyanotic, pedal edema Internal Med - H&P Results - Labs CBC & Chem 7: 10/16/17 04:57 10/10/17 00:59 - Assessment and plan (1) Pneumothorax Current Visit: Yes Status: Acute Assessment and plan: S/P chest tube placement, cardiothoracic surgery was consulted. Qualifiers: Pneumothorax type: spontaneous, primary Qualified Code(s): J93.11 - Primary spontaneous pneumothorax (2) Dementia Current Visit: Yes Status: Chronic Qualifiers: Dementia type: Alzheimer's disease Alzheimer's disease onset: unspecified onset Dementia behavioral disturbance: without behavioral disturbance Qualified Code(s): G30.9 - Alzheimer's disease, unspecified; F02.80 - Dementia in other diseases classified elsewhere without behavioral disturbance (3) DVT prophylaxis Current Visit: Yes Status: Acute Assessment and plan: Sc SCDs - Time Spent With Patient Total time spent is greater than 50% in coordination of care (as documented) at patient's floor/unit and/or counseling patient:
[2017-10-09] MEDS ORDERED: Acetaminophen 325 MG TABLET PO PRN (19:09)
[2017-10-09] MEDS ORDERED: Naloxone 0.4 MG/ML INJ IVP PRN (19:09)
[2017-10-09] MEDS ORDERED: *HR* HYDROcodone/Acet 5/325 mg TABLET PO PRN (19:09)
[2017-10-09] MEDS: 0.9 % Sodium Chloride 1,000 ML IVC SCH (20:52)
[2017-10-10 01:12] LABS: Bilirubin,Urine Negative (Negative); Blood,Urine Moderate (Negative); Clarity,Urine Clear (Clear); Color,Urine Yellow (Yellow); Glucose,Urine (UA) Normal (Normal); Ketones,Urine Negative (Negative); Leukocyte Esterase,Urine Negative (Negative); Nitrite,Urine Negative (Negative); PH,Urine 6.5 pH Units (5.0-8.0); Protein,Urine Negative (Neg-Trace); Specific Gravity,Urine 1.008 (1.010-1.025); Urobilinogen,Urine Normal (Normal)
[2017-10-10 01:15] LABS: Bacteria,Urine None Seen per hpf (None-Few); Hyaline Casts,Urine None Seen per lpf (None-Few); Squamous Epithelial Cell,Urine None Seen per lpf (None-Few); WBC,Urine 0-3 per hpf (0-3)
[2017-10-10 01:17] LABS: Basophils % 0.4 %; Eosinophils # 0.1 K/mcL (0.0-0.6); Eosinophils % 1.7 %; Hematocrit 36.9 % (37.5-50.1); Hemoglobin 12.1 g/dL (12.9-16.9); Immature Granulocytes % 0.4 % (0-4); Mean Corpuscular HGB Conc 32.8 g/dL (31.6-35.5); Mean Corpuscular Hemoglobin 28.6 pg (28.0-33.3); Mean Corpuscular Volume 87.2 fL (83.0-100.0); Mean Platelet Volume 9.8 fL (9.4-12.4); Monocytes # 0.5 K/mcL (0.0-1.3); Monocytes % 9.9 %; Neutrophils # 3.5 K/mcL (1.6-8.9); Platelet Count 122 K/mcL (140-400); Red Blood Count 4.23 M/mcL (4.19-5.50); Red Cell Distribution Width 15.7 % (11.5-14.5); Segmented Neutrophils % 67.6 %
[2017-10-10 01:23] LABS: INR 1.2; Prothrombin Time 13.3 Seconds (9.4-12.1)
[2017-10-10 01:25] LABS: Activated Partial Thrombo Time 30.3 Seconds (26.0-36.0)
[2017-10-10 01:37] LABS: Alanine Aminotransferase 9 Units/L (7-52); Albumin 3.5 g/dL (3.5-5.7); Albumin/Globulin Ratio 1.8 (1.1-2.2); Alkaline Phosphatase 64 Units/L (34-104); Aspartate Amino Transferase 16 Units/L (13-39); BUN/Creatinine Ratio 24 (6-26); Bilirubin,Total 0.7 mg/dL (0.3-1.0); Blood Urea Nitrogen 18 mg/dL (8-23); Calcium 8.7 mg/dL (8.6-10.3); Carbon Dioxide 24 mEq/L (23-29); Chloride 110 mEq/L (98-107); Chol/HDL Ratio 4.8 (0-4.9); Cholesterol 145 mg/dL (< 200); Glucose 101 mg/dL (70-105); HDL Cholesterol 30 mg/dL (40-59); LDL Cholesterol,Calculated 98 mg/dL (0-99); Magnesium 1.9 mg/dL (1.6-2.6); Osmolality,Calculated 292 (280-300); Phosphorous 3.4 mg/dL (2.7-4.5); Potassium 3.9 mEq/L (3.5-5.1); Sodium 140 mEq/L (136-145); Total Protein 5.5 g/dL (6.4-8.9); Triglycerides 83 mg/dL (< 150); eGFR For African Americans > 60 (> 60); eGFR For Non-African Americans > 60 (> 60)
[2017-10-10] MEDS: 0.9 % Sodium Chloride 1,000 ML IVC SCH (05:50)
--- NOTE | 2017-10-10 08:14 | Cardiothoracic Consult Note ---
Date of Encounter: 10/10/17 Time of Encounter: 08:11 Assessment and Plan (1) Pneumothorax Current Visit: Yes Status: Acute Patient is an 82-year-old demented man who was brought to the emergency department yesterday after experiencing an episode of unresponsiveness. In the emergency department the patient was found to be hypoxic and a chest x-ray revealed a large right spontaneous pneumothorax. A chest tube was inserted with near complete resolution of the right pneumothorax. He is staying comfortably in his hospital bed without respiratory distress. There is no leak in the chest tube. The chest tube should remain on suction for 1-2 days and he should have serial chest x-rays to monitor the pneumothorax. The assessment and plan as outlined above was discussed with the patient and/or family members who expressed understanding and agreement. All questions were answered. Qualifiers: Pneumothorax type: spontaneous, primary Qualified Code(s): J93.11 - Primary spontaneous pneumothorax - History of Present Illness Consult date: 10/09/17 Requesting physician: Andrae Staton Consult reason: Chest tube management Chief complaint: Right spontaneous pneumothorax History of present illness: Mr. Reynolds is a 82 year old man with dementia who was brought to [facility] yesterday after experiencing a period of unresponsiveness. The patient's family states that the patient has been short of breath and coughing for 1-2 days. He refused evaluation in the emergency department; however when he became unresponsive the patient's family had him brought to the emergency department. He was found to be hypoxic and a chest x- ray revealed a large right spontaneous pneumothorax. A chest tube was inserted in the emergency department with near complete resolution of the right pneumothorax. I have been asked to valuated patient for chest tube management. Past Med Surg Social Fam HX - Past Medical History Medical history: COPD, dementia Psychiatric history: no psych history - Past Surgical History Surgical History: appendectomy - Social History Smoking Status: Former smoker Smokeless Tobacco Status: No Alcohol use: none Drug use: none Occupational status: retired Current living situation: Home - Independent Activity Level: Mostly sedentary Recent Out of Country Travel Within the Last 8 Weeks: No Exposure or Possible Exposure to Illness During Travel: No - Family History Mother Adopted: No Family Member Ethnicity: Non- Living Status: Hx Family Cardiac Disorders: No Hx Family Respiratory Disorders: No Hx Family Cancer: Yes Hx Family GI Disorders: No Hx Family Endocrine Disorder: No Hx Family Neuromuscular Disorders: No Hx Family Neurologic Disorders: No Hx Family HEENT Disorders: No Hx Family Autoimmune Disorders: No Medications and Allergies Ferrous Sulfate [Iron] 325 tab PO DAILY 05/13/17 [History] Metoprolol [Lopressor] 12.5 mg PO BID #60 tablet 05/14/17 [Rx] Donepezil [Aricept] 10 mg PO DAILY 10/09/17 [History] Multivit-Min/FA/Lycopen/Lutein [A Thru Z Select Multivit Tab] 1 tab PO DAILY [History] 3 Allergy/AdvReac Type Severity Reaction Status Date / Time levofloxacin AdvReac Rash Verified 05/12/17 22:16 All Systems Review: The remainder of the systems were reviewed and are negative Physical Examination Vital Signs, Last 4 Hours Temp Pulse Resp BP Pulse Ox 10/10/17 07:28 97.8 F 89 16 149/77 95 10/10/17 05:44 85 16 152/91 96 General: Conversant, No Apparent Distress, Other (Not oriented to place or time. ) Neck: No JVD, Normal carotid pulses Cardiac: Reg Rate and Rhythm, Normal S1 and S2, No Murmur Lungs: Normal Breath Sounds, No Wheeze, Rales, Rhonchi Neuro: Alert and responsive, No focal deficits noted Vascular: Normal capillary refill Abdomen: Soft, Non-tender Skin: No rashes noted on visualized skin Musculoskeletal: No Chest Wall Tenderness, Other (No air leak and right chest tube) Extremities: No Clubbing, No Cyanosis, No Edema Results 10/10/17 00:59 10/10/17 00:59 Lab Results, Last 24 hours 10/09/17 10/10/17 10/10/17 19:33 00:59 00:59 WBC 5.2 Hgb 12.1 L D Hct 36.9 L Plt Count 122 L INR APTT Sodium Potassium Chloride Carbon Dioxide BUN Creatinine Glucose Calcium Magnesium Total Bilirubin AST ALT Alkaline Phosphatase Troponin I < 0.03 < 0.03 10/10/17 10/10/17 10/10/17 00:59 00:59 07:36 WBC Hgb Hct Plt Count INR 1.2 APTT 30.3 Sodium 140 Potassium 3.9 Chloride 110 H Carbon Dioxide 24 BUN 18 Creatinine 0.76 Glucose 101 Calcium 8.7 Magnesium 1.9 Total Bilirubin 0.7 AST 16 ALT 9 Alkaline Phosphatase 64 Troponin I < 0.03 Consult Discharge Plan - Plan Referrals: Jayla Recinos, WAVE SOLDERING MACHINE OPERATOR [Primary Care Provider] -
[2017-10-10] MEDS: Multivit/Ca/Min/Fe/FA 1 TAB TABLET PO SCH (09:56)
--- NOTE | 2017-10-10 13:10 | Internal Med Progress Note ---
Date of Encounter: 10/10/17 Time of Encounter: 13:08 - Assessment and plan (1) Pneumothorax Current Visit: Yes Status: Acute Assessment and plan: Hypoxia and tachycardia secondary to Right spontaneous pneumothorax S/P chest tube placement The patient was found to have a oxygen saturation of 83% cardiothoracic surgery was consulted. Chest tube to suction Chest x-ray in the morning High risk of respiratory failure Qualifiers: Pneumothorax type: spontaneous, primary Qualified Code(s): J93.11 - Primary spontaneous pneumothorax (2) Dementia Current Visit: No Status: Chronic Assessment and plan: On donepezil Qualifiers: Dementia type: Alzheimer's disease Alzheimer's disease onset: unspecified onset Dementia behavioral disturbance: without behavioral disturbance Qualified Code(s): G30.9 - Alzheimer's disease, unspecified; F02.80 - Dementia in other diseases classified elsewhere without behavioral disturbance (3) Diastolic CHF Current Visit: Yes Status: Acute Assessment and plan: Mild diastolic CHF, no exacerbation Qualifiers: Heart failure chronicity: chronic Qualified Code(s): I50.32 - Chronic diastolic (congestive) heart failure (4) Hypoxia Current Visit: Yes Status: Acute (5) Multifocal atrial tachycardia Current Visit: No Status: Resolved Assessment and plan: Stable Continue metoprolol - Time Spent With Patient Total time spent is greater than 50% in coordination of care (as documented) at patient's floor/unit and/or counseling patient: - Subjective Interval history: The patient is oriented only in person, denies any pain, appears to be comfortable, denies any chest pain or shortness of breath, no abdominal pain. Review of systems unable to be completed due to the patient's dementia - Constitutional Vitals: Temp Pulse Resp BP Pulse Ox 97.8 F 90 17 141/89 96 10/10/17 07:28 10/10/17 11:14 10/10/17 11:14 10/10/17 11:14 10/10/17 11:14 General appearance: Present: A&O X 1 - Head Head exam: Present: atraumatic, normocephalic - Eye Eye exam: Present: PERRL, conjuntiva pink, sclera anicteric Pupils: Present: PERRL - Neck Neck exam general surgery: Present: supple, trachea midline. Absent: lymphadenopathy - Respiratory Respiratory exam: Present: CTAB. Absent: accessory muscle use, rales, rhonchi, wheezes - Cardiovascular Cardiovascular exam: Present: RRR, +S1, +S2. Absent: diastolic murmur, gallop, rubs, systolic murmur - GI/Abdominal GI/Abdominal exam: Present: normal bowel sounds, soft, no peritoneal signs. Absent: distended, tenderness - Extremities Exam Extremities exam: Present: warm, radial pulses palpable and symmetrical. Absent : calf tenderness, cyanotic, pedal edema - Neurological Exam Neurological exam: Present: CN II-XII intact, no focal deficits. Absent: oriented X3, pronater drift, facial droop, speech deficit - Skin Skin exam: Present: dry, intact Internal Medicine: Result - Labs CBC & Chem 7: 10/10/17 00:59 10/10/17 00:59 Labs: Short CBC 10/10/17 Range/Units 00:59 WBC 5.2 (4.3-11.1) K/mcL Hgb 12.1 L D (12.9-16.9) g/dL Hct 36.9 L (37.5-50.1) % Plt Count 122 L (140-400) K/mcL Neutrophils # 3.5 (1.6-8.9) K/mcL BMP 10/10/17 00:59 Sodium 140 Potassium 3.9 Chloride 110 H Carbon Dioxide 24 BUN 18 Creatinine 0.76 Glucose 101 Calcium 8.7 Cardiac Enzymes 10/09/17 10/10/17 10/10/17 Range/Units 19:33 00:59 07:36 Troponin I < 0.03 < 0.03 < 0.03 (< 0.04) ng/mL Liver Function 10/10/17 Range/Units 00:59 Total Bilirubin 0.7 (0.3-1.0) mg/dL AST 16 (13-39) Units/L ALT 9 (7-52) Units/L Alkaline Phosphatase 64 (34-104) Units/L Albumin 3.5 (3.5-5.7) g/dL Urine 10/10/17 Range/Units 00:56 Urine Color Yellow (Yellow) Urine Clarity Clear (Clear) Urine pH 6.5 (5.0-8.0) pH Units Ur Specific [place] 1.008 L (1.010-1.025) Urine Protein Negative (Neg-Trace) mg/dL Urine Glucose (UA) Normal (Normal) mg/dL - ABG Interpretation ABG results: PT/INR, D-dimer PT 13.3 Seconds (9.4-12.1) H 10/10/17 00:59 - Impressions Impressions Chest X-Ray 10/10/17 08:18 IMPRESSION: Improving right sided pneumothorax. D/ / 10/10/2017 10:48:14 Yogi Ross MD / bcarter Interpreting Provider: Yogi Ross MD - VTE Documentation of Mechanical Device: Graduated compression elastic hosiery Consult Discharge Plan - Plan Referrals: Jayla Recinos, W[employer] TUR[employer] BLADE REPAIR TECHNICIAN [Primary Care Provider] -
[2017-10-10] MEDS ORDERED: Haloperidol Lactate 5 MG/ML VIAL IVP ONE (18:49)
[2017-10-10] MEDS ORDERED: Haloperidol Lactate 5 MG/ML VIAL ONE (18:50)
--- NOTE | 2017-10-11 08:09 | Cardiothoracic Progress Note ---
Date of Encounter: 10/11/17 Time of Encounter: 08:07 - Assessment and plan (1) Pneumothorax Current Visit: Yes Status: Acute The patient is resting comfortably in his hospital bed; however, the right chest tube has become dislodged and there is an increase in the size of the right pneumothorax. A new chest tube will be placed to evacuate the pneumothorax. The assessment and plan as outlined above was discussed with the patient and/or family members who expressed understanding and agreement. All questions were answered. Qualifiers: Pneumothorax type: spontaneous, primary Qualified Code(s): J93.11 - Primary spontaneous pneumothorax - Subjective Interval history: The patient is resting comfortably in his hospital bed. He has no respiratory distress, though the chest x-ray reveals dislodgment of the right-sided chest tube with an increase in the size of the right pneumothorax. Vital Signs, Last 4 Hours Temp Pulse Resp BP Pulse Ox 10/11/17 06:16 97.7 F 93 18 153/94 94 10/11/17 04:31 98 18 152/98 91 Oxgyen Flow Rate Oxygen Flow Rate (LPM) 2 Clinical Data, last 8 Hours Output, Urine Amount 150 Output, Urine Amount 50 Output, Urine Amount 200 Weight 10/09/17 10/10/17 10/11/17 23:59 23:59 23:59 Weight 73.2 kg - Physical Examination General: Conversant, No Apparent Distress Neck: No JVD, Normal carotid pulses Cardiac: Reg Rate and Rhythm, Normal S1 and S2, No Murmur Incision: No signs of infection, Dry/intact dressing Chest tubes: Minimal drainage, Other (No air leak) Lungs: Normal Breath Sounds, No Wheeze, Rales, Rhonchi Neuro: Alert and responsive, No focal deficits noted Vascular: Normal capillary refill Musculoskeletal: No Chest Wall Tenderness Extremities: No Clubbing, No Cyanosis, No Edema - Labs 10/10/17 00:59 10/10/17 00:59 Lab Results, Last 24 hours 10/10/17 07:36 Troponin I < 0.03 - Imaging Chest Xray: image reviewed (Dislodgment of the right chest tube with an increase in the right pneumothorax.) - VTE Documentation of Mechanical Device: Graduated compression elastic hosiery Consult Discharge Plan - Plan Referrals: Jayla Recinos, CONTINUITY COORDINATOR [Primary Care Provider] -
[2017-10-11] MEDS: Multivit/Ca/Min/Fe/FA 1 TAB TABLET PO SCH (09:09)
--- NOTE | 2017-10-11 09:11 | Procedure Note ---
Date of procedure: 10/11/17 Pre-op diagnosis: Pneumothorax Post-op diagnosis: same Procedure: Consent was obtained by the patient's son as the patient has long-standing dementia verbal consent was given over the phone and confirmed by the nurse at bedside . A time-out was completed verifying correct patient, procedure, site, positioning, and special equipment if applicable. The patients right side was prepped and draped in a sterile manner after the appropriate infiltration level was confirmed by ultrasound. 1% lidocaine was used anesthetize the surrounding skin. at approx the 5th rib an axiallary line An 8F chest tube was then inserted (catheter over needle) over the rib until air was aspirated then the catheter was advanced approx 5cm more. The catheter was then connected to an atrium and initial air was aspirated into the chamber but while on suction approx 5cc of blood was suctioned into the tubing which was consistent with ches bute being in subcutaneous tissue as apposed to pleural space the catheter was then removed and an occlusive dressing was applied over petroluem guaze. The patient tolerated the procedure without any untoward effects he was monitored continuously and pulse ox did not drop below 95% he was hemodynamically stable throughout the procedure he denied any significant pain post procedure Surgeon: Clayton Herring Was there an executive administrative assistant present: No Estimated blood loss (cc): 5 Specimen: none Condition: stable Disposition: no change I was called by the cardiothoracic surgeon Dr. Newby to evaluate the patient for a small bore chest tube placement for chest tube migration with resultant reaccumulation of pneumothorax in a patient with long-standing bullous emphysema. Chest tube was attempted at bedside however the chest tube was unsuccesffully placed (likely in the subcutaneous space and was removed) given his failure I felt the safest route was to place a larger bore chest tube over the weekend by cardiothoracic surgery.
[2017-10-11] MEDS ORDERED: Lidocaine -MPF 2% 5 ML VIAL ONE (10:09)
--- NOTE | 2017-10-11 10:56 | Operative Note ---
Date of procedure: 10/11/17 Pre-op diagnosis: Recurrent right spontaneous pneumothorax Post-op diagnosis: same Procedure: 1. Right chest tube insertion Implants: 1. #28-Gabonese chest tube Complications: None. Anesthesia: local Surgeon: Jules Newby Was there an server service assistant present: No Estimated blood loss (cc): 3 Specimen: None. Condition: stable Disposition: floor Procedure in Detail: INDICATIONS FOR PROCEDURE: The patientis a 82 year old man with dementia who was brought to [facility] yesterday after experiencing a period of unresponsiveness. The patient's family states that the patient has been short of breath and coughing for 1-2 days. He refused evaluation in the emergency department; however when he became unresponsive the patient's family had him brought to the emergency department. He was found to be hypoxic and a chest x-ray revealed a large right spontaneous pneumothorax. A chest tube was inserted in the emergency department with near complete resolution of the right pneumothorax. I have been asked to valuated patient for chest tube management. Yesterday's chest x-ray showed near complete resolution of the right pneumothorax. However, this morning's chest x-ray showed that the smallbore chest tube which had been placed in the emergency department had become dislodged and there was a recurrent right pneumothorax. A small chest tube insertion was attempted by the pulmonary service, but was unsuccessful. I have been asked to place a large bore chest tube for treatment of the pneumothorax. FINDINGS AT PROCEDURE: The patient had escape a large amount of air from the right hemithorax upon entering the pleural space. No other abnormalities were noted. DESCRIPTION OF PROCEDURE: After obtaining verbal consent from the patient's family, the patient was placed in the left lateral decubitus position in his hospital bed. A lower intercostal space in the right mid axillary line was anesthetized with lidocaine 1% without epinephrine. An incision was then made through the skin and subcutaneous tissue and a hemostat was used to bluntly dissect the latissimus dorsi muscle group. The intercostal space was identified and then entered with a hemostat. This area was enlarged with a Rika clamp and a 28-Gabonese chest tube was inserted posteriorly. The chest tube was secured to the skin edges using 2-0 silk suture. Sterile dressings were applied. The patient tolerated the procedure without difficulty. A postprocedure chest x -ray showed resolution of the right pneumothorax.
--- NOTE | 2017-10-11 12:27 | Internal Med Progress Note ---
Date of Encounter: 10/11/17 Time of Encounter: 12:25 - Assessment and plan (1) Pneumothorax Current Visit: Yes Status: Acute Assessment and plan: Hypoxia and tachycardia secondary to Right spontaneous pneumothorax S/P chest tube placement The patient was found to have a oxygen saturation of 83% Chestube was placed again today cardiothoracic surgery and pulmonary consulted Chest tube to suction Chest x-ray daily High risk of respiratory failure Qualifiers: Pneumothorax type: spontaneous, primary Qualified Code(s): J93.11 - Primary spontaneous pneumothorax (2) Dementia Current Visit: No Status: Chronic Assessment and plan: On donepezil Qualifiers: Dementia type: Alzheimer's disease Alzheimer's disease onset: unspecified onset Dementia behavioral disturbance: without behavioral disturbance Qualified Code(s): G30.9 - Alzheimer's disease, unspecified; F02.80 - Dementia in other diseases classified elsewhere without behavioral disturbance (3) Diastolic CHF Current Visit: Yes Status: Acute Assessment and plan: Mild diastolic CHF, no exacerbation Qualifiers: Heart failure chronicity: chronic Qualified Code(s): I50.32 - Chronic diastolic (congestive) heart failure (4) Hypoxia Current Visit: Yes Status: Acute (5) Multifocal atrial tachycardia Current Visit: No Status: Resolved Assessment and plan: Stable Continue metoprolol - Time Spent With Patient Total time spent is greater than 50% in coordination of care (as documented) at patient's floor/unit and/or counseling patient: - Subjective Interval history: Denies pain or SOB. The patient is oriented only in person, appears to be comfortable, denies shortness of breath, no abdominal pain. Review of systems unable to be completed due to the patient's dementia - Constitutional Vitals: Temp Pulse Resp BP Pulse Ox 97.7 F 93 18 153/94 94 10/11/17 06:16 10/11/17 06:16 10/11/17 06:16 10/11/17 06:16 10/11/17 06:16 General appearance: Present: A&O X 1 Exam: General appearance: Present: A&O X 1 - Head Head exam: Present: atraumatic, normocephalic - Eye Eye exam: Present: PERRL, conjuntiva pink, sclera anicteric Pupils: Present: PERRL - Neck Neck exam general surgery: Present: supple, trachea midline. Absent: lymphadenopathy - Respiratory Respiratory exam: Present: CTAB. Absent: accessory muscle use, rales, rhonchi, wheezes - Cardiovascular Cardiovascular exam: Present: RRR, +S1, +S2. Absent: diastolic murmur, gallop, rubs, systolic murmur - GI/Abdominal GI/Abdominal exam: Present: normal bowel sounds, soft, no peritoneal signs. Absent: distended, tenderness - Extremities Exam Extremities exam: Present: warm, radial pulses palpable and symmetrical. Absent : calf tenderness, cyanotic, pedal edema - Neurological Exam Neurological exam: Present: CN II-XII intact, no focal deficits. Absent: oriented X3, pronater drift, facial droop, speech deficit - Skin Skin exam: Present: dry, intact Internal Medicine: Result - Labs CBC & Chem 7: 10/10/17 00:59 10/10/17 00:59 - ABG Interpretation ABG results: PT/INR, D-dimer PT 13.3 Seconds (9.4-12.1) H 10/10/17 00:59 - Impressions Impressions Chest X-Ray 10/10/17 08:18 IMPRESSION: Improving right sided pneumothorax. D/ / 10/10/2017 10:48:14 Yogi Ross MD / shaista Interpreting Provider: Yogi Ross MD Chest X-Ray 10/11/17 06:00 IMPRESSION: Significant enlargement of the right-sided pneumothorax with possible migration of the right-sided chest tube. D/ / Jacob Reed MD / Jacob Reed MD Interpreting Provider: Jacob Reed MD Chest X-Ray 10/11/17 10:51 IMPRESSION: Interval placement of a large 4th right thoracostomy tube with interval improvement of a right pneumothorax. Subcutaneous emphysema in the right chest wall. Bibasilar atelectasis. D/ / 10/11/2017 11:20:26 Harriet Robles MD / bcarter Interpreting Provider: Harriet Robles MD - VTE Documentation of Mechanical Device: Graduated compression elastic hosiery Consult Discharge Plan - Plan Referrals: Jayla Recinos, MANSI [Primary Care Provider] -
[2017-10-11 17:27] LABS: INR 1.2; Prothrombin Time 13.2 Seconds (9.4-12.1)
[2017-10-11 17:30] LABS: Activated Partial Thrombo Time 30.9 Seconds (26.0-36.0)
[2017-10-12] MEDS: Haloperidol Lactate 5 MG/ML VIAL IVP PRN (05:28)
--- NOTE | 2017-10-12 08:27 | Cardiothoracic Progress Note ---
Date of Encounter: 10/12/17 Time of Encounter: 08:25 - Assessment and plan (1) Pneumothorax Current Visit: Yes Status: Acute The patient is resting comfortably in his hospital bed. The chest tube has no air leak today and the chest x-ray shows no recurrent pneumothorax. The chest tube should remain on suction for 1-2 more days prior to being placed to [facility]. The assessment and plan as outlined above was discussed with the patient and/or family members who expressed understanding and agreement. All questions were answered. Qualifiers: Pneumothorax type: spontaneous, primary Qualified Code(s): J93.11 - Primary spontaneous pneumothorax - Subjective Interval history: The patient is resting comfortably in his hospital bed. He has no respiratory distress. Vital Signs, Last 4 Hours Pulse Resp BP Pulse Ox 10/12/17 07:54 93 20 135/89 96 Oxgyen Flow Rate Oxygen Flow Rate (LPM) 2 Clinical Data, last 8 Hours Output, Chest Tube Drainage 73 Amount [Right Lateral Chest] Output, Urine Amount 150 Weight 10/10/17 10/11/17 10/12/17 23:59 23:59 23:59 Weight 73.2 kg 73.8 kg - Physical Examination General: Conversant, No Apparent Distress Neck: No JVD, Normal carotid pulses Cardiac: Reg Rate and Rhythm, Normal S1 and S2, No Murmur Incision: No signs of infection, Dry/intact dressing Chest tubes: Minimal drainage, Other (No air leak) Lungs: Normal Breath Sounds, No Wheeze, Rales, Rhonchi Neuro: Alert and responsive, No focal deficits noted Vascular: Normal capillary refill Extremities: No Clubbing, No Cyanosis, No Edema - Labs 10/10/17 00:59 10/10/17 00:59 Lab Results, Last 24 hours 10/11/17 17:01 INR 1.2 APTT 30.9 - Imaging Chest Xray: image reviewed (No pneumothorax Stable chest wall subcutaneous emphysema.) - VTE Documentation of Mechanical Device: Graduated compression elastic hosiery Consult Discharge Plan - Plan Referrals: Jayla Recinos, CHIEF WHARFINGER [Primary Care Provider] -
--- NOTE | 2017-10-12 08:46 | Internal Med Progress Note ---
Date of Encounter: 10/12/17 Time of Encounter: 08:44 - Assessment and plan (1) Pneumothorax Current Visit: Yes Status: Acute Assessment and plan: Hypoxia and tachycardia secondary to Right spontaneous pneumothorax S/P chest tube placement The patient was found to have a oxygen saturation of 83% Chestube was placed again yesterday cardiothoracic surgery and pulmonary consulted Chest tube to suction Chest x-ray daily High risk of respiratory failure Qualifiers: Pneumothorax type: spontaneous, primary Qualified Code(s): J93.11 - Primary spontaneous pneumothorax (2) Dementia Current Visit: No Status: Chronic Assessment and plan: On donepezil Has episodes of agitation in the afternoon according to family. Continue Haldol as needed Continue sitter as the patient pulled 1 tube already Qualifiers: Dementia type: Alzheimer's disease Alzheimer's disease onset: unspecified onset Dementia behavioral disturbance: without behavioral disturbance Qualified Code(s): G30.9 - Alzheimer's disease, unspecified; F02.80 - Dementia in other diseases classified elsewhere without behavioral disturbance (3) Diastolic CHF Current Visit: Yes Status: Acute Assessment and plan: Mild diastolic CHF, no exacerbation Qualifiers: Heart failure chronicity: chronic Qualified Code(s): I50.32 - Chronic diastolic (congestive) heart failure (4) Hypoxia Current Visit: Yes Status: Acute (5) Multifocal atrial tachycardia Current Visit: No Status: Resolved Assessment and plan: Stable Continue metoprolol - Time Spent With Patient Total time spent is greater than 50% in coordination of care (as documented) at patient's floor/unit and/or counseling patient: - Subjective Interval history: Denies pain. No issues overnight The patient is oriented only in person at baseline, appears to be comfortable, denies shortness of breath, no abdominal pain. Review of systems unable to be completed due to the patient's dementia - Constitutional Vitals: Temp Pulse Resp BP Pulse Ox 97.6 F 93 20 135/89 96 10/11/17 19:47 10/12/17 07:54 10/12/17 07:54 10/12/17 07:54 10/12/17 07:54 General appearance: Present: A&O X 1 Exam: - Head Head exam: Present: atraumatic, normocephalic - Eye Eye exam: Present: PERRL, conjuntiva pink, sclera anicteric Pupils: Present: PERRL - Neck Neck exam general surgery: Present: supple, trachea midline. Absent: lymphadenopathy - Respiratory Respiratory exam: Present: CTAB. Absent: accessory muscle use, rales, rhonchi, wheezes Right-sided chest tube, diffuse crackles. - Cardiovascular Cardiovascular exam: Present: RRR, +S1, +S2. Absent: diastolic murmur, gallop, rubs, systolic murmur - GI/Abdominal GI/Abdominal exam: Present: normal bowel sounds, soft, no peritoneal signs. Absent: distended, tenderness - Extremities Exam Extremities exam: Present: warm, radial pulses palpable and symmetrical. Absent : calf tenderness, cyanotic, pedal edema - Neurological Exam Neurological exam: Present: CN II-XII intact, no focal deficits. Absent: oriented X3, pronater drift, facial droop, speech deficit - Skin Skin exam: Present: dry, intact Internal Medicine: Result - Labs CBC & Chem 7: 10/10/17 00:59 10/10/17 00:59 - ABG Interpretation ABG results: PT/INR, D-dimer PT 13.2 Seconds (9.4-12.1) H 10/11/17 17:01 - Impressions Impressions Chest X-Ray 10/11/17 10:51 IMPRESSION: Interval placement of a large 4th right thoracostomy tube with interval improvement of a right pneumothorax. Subcutaneous emphysema in the right chest wall. Bibasilar atelectasis. D/ / 10/11/2017 11:20:26 Harriet Robles MD / shaista Interpreting Provider: Harriet Robles MD Chest X-Ray 10/11/17 16:30 IMPRESSION: No change. No evidence of pneumothorax. D/ / 10/11/2017 16:50:20 Yogi Ross MD / shaista Interpreting Provider: Yogi Ross MD Chest X-Ray 10/12/17 07:22 IMPRESSION: 1. Right thoracostomy tube in place. There may be a tiny subtle residual apical pneumothorax. 2. Blunting of the left costophrenic angle which could reflect a small pleural effusion. D/ / Harriet Robles MD / Harriet Robles MD Interpreting Provider: Harriet Robles MD - VTE Documentation of Mechanical Device: Graduated compression elastic hosiery Consult Discharge Plan - Plan Referrals: Jayla Recinos CNP [Primary Care Provider] -
[2017-10-12] MEDS: Multivit/Ca/Min/Fe/FA 1 TAB TABLET PO SCH (09:53)
[2017-10-13] MEDS: Haloperidol Lactate 5 MG/ML VIAL IVP PRN ×2 (01:42→17:25)
--- NOTE | 2017-10-13 07:35 | Cardiothoracic Progress Note ---
Date of Encounter: 10/13/17 Time of Encounter: 07:33 - Assessment and plan (1) Multifocal pneumonia Current Visit: No Status: Acute The assessment and plan as outlined above was discussed with the patient and/or family members who expressed understanding and agreement. All questions were answered. We will leave the chest tube to suction today. We will plan to remove the chest tube suction tomorrow and hopefully, can remove the chest tube on . - Subjective Interval history: The patient has no complaints. Vital Signs, Last 4 Hours Temp Pulse Resp BP Pulse Ox 10/13/17 07:26 97.9 F 92 17 141/85 96 Oxgyen Flow Rate Oxygen Flow Rate (LPM) 1 Clinical Data, last 8 Hours Output, Chest Tube Drainage 0 Amount [Right Lateral Chest] Output, Chest Tube Drainage 90 Amount [Right Lateral Chest] Output, Urine Amount 150 Output, Urine Amount 200 Weight 10/11/17 10/12/17 10/13/17 23:59 23:59 23:59 Weight 73.2 kg 73.8 kg 73.6 kg Lungs are clear to percussion and auscultation. Chest tube drainage is minimal and there is no air leak. I do not see a pneumothorax on the chest x-ray. - Labs 10/10/17 00:59 10/10/17 00:59 - VTE Documentation of Mechanical Device: Graduated compression elastic hosiery Consult Discharge Plan - Plan Referrals: Jayla Recinos, SECURITY POLICE OFFICER [Primary Care Provider] -
[2017-10-13] MEDS: Multivit/Ca/Min/Fe/FA 1 TAB TABLET PO SCH (08:42)
--- NOTE | 2017-10-13 10:32 | Internal Med Progress Note ---
<Andrew Cooney - Last Filed: 10/13/17 13:17> Date of Encounter: 10/13/17 Time of Encounter: 10:32 - Assessment and plan (1) Pneumothorax Current Visit: Yes Status: Acute Assessment and plan: Hypoxia and tachycardia secondary to Right spontaneous pneumothorax S/P chest tube placement The patient was found to have a oxygen saturation of 83% Chest tube was placed 10/11/17 Cardiothoracic surgery and pulmonary on board. Reviewed note: continue with suction today and remove suction tomorrow, possibly remove tube on . -Chest tube to suction -Chest x-ray daily High risk of respiratory failure Qualifiers: Pneumothorax type: spontaneous, primary Qualified Code(s): J93.11 - Primary spontaneous pneumothorax (2) Hypoxia Current Visit: Yes Status: Resolved (3) Dementia Current Visit: No Status: Chronic Assessment and plan: History of dementia. Has episodes of agitation in the afternoon according to family. Continue sitter as the patient pulled 1 chest tube already -May need restraints if attempts to pull tube again. -Haldol prn agitation -Continue donepezil. Qualifiers: Dementia type: Alzheimer's disease Alzheimer's disease onset: unspecified onset Dementia behavioral disturbance: without behavioral disturbance Qualified Code(s): G30.9 - Alzheimer's disease, unspecified; F02.80 - Dementia in other diseases classified elsewhere without behavioral disturbance (4) Multifocal atrial tachycardia Current Visit: No Status: Resolved Assessment and plan: History of MAT, currently controlled. Continue metoprolol (5) Diastolic CHF Current Visit: Yes Status: Chronic Assessment and plan: Mild diastolic CHF, no exacerbation Qualifiers: Heart failure chronicity: chronic Qualified Code(s): I50.32 - Chronic diastolic (congestive) heart failure - Time Spent With Patient Total time spent is greater than 50% in coordination of care (as documented) at patient's floor/unit and/or counseling patient: - Subjective Interval history: Mr. Reynolds is doing well this morning. No outbursts reported overnight. Patient continues to be pleasently demented with alert to person only. Patient otherwise has no complaints. Denies fevers, chills, sweats, nausea, vomiting, chest pain, shortness of breath, abdominal pain, changes in bowels or bladder, weakness, loss of sensation. - Constitutional Vitals: Temp Pulse Resp BP Pulse Ox 97.9 F 92 17 141/85 94 10/13/17 07:26 10/13/17 07:26 10/13/17 07:26 10/13/17 07:10/13/17 08:50 General appearance: Present: A&O X 1, pleasant, no acute distress, answers questions appropriately - Head Head exam: Present: atraumatic, normal inspection, normocephalic - Eye Eye exam: Present: EOMI, normal appearance - ENT ENT exam: Present: mucous membranes moist, normal exam - Neck Neck exam general surgery: Present: full ROM, normal inspection, supple, trachea midline - Respiratory Respiratory exam: Present: CTAB. Absent: rhonchi, wheezes Additional comments: R chest tube in place to suction, diffuse crackles on right, subcutaneous emphysema and crepitus noted. - Cardiovascular Cardiovascular exam: Present: RRR, +S1, +S2 - GI/Abdominal GI/Abdominal exam: Present: normal bowel sounds, soft. Absent: distended, tenderness - Extremities Exam Extremities exam: Present: full ROM, normal inspection, warm, radial pulses palpable and symmetrical. Absent: pedal edema - Neurological Exam Neurological exam: Present: no focal deficits, strengths equal and symetr throughout. Absent: facial droop, speech deficit - Skin Skin exam: Present: dry, intact, normal color, warm. Absent: rash Internal Medicine: Result - Labs CBC & Chem 7: 10/10/17 00:59 10/10/17 00:59 - ABG Interpretation ABG results: PT/INR, D-dimer PT 13.2 Seconds (9.4-12.1) H 10/11/17 17:01 - Impressions Impressions Chest X-Ray 10/11/17 16:30 IMPRESSION: No change. No evidence of pneumothorax. D/ / 10/11/2017 16:50:20 Yogi Ross MD / shaista Interpreting Provider: Yogi Ross MD Chest X-Ray 10/13/17 06:00 IMPRESSION: Right-sided chest tube remains in place. No appreciable pneumothorax on the right seen. Subcutaneous emphysema right chest wall persists. D/ / 10/13/2017 07:30:17 Raghav Perez MD / tkyer Interpreting Provider: Raghav Perez MD - VTE Documentation of Mechanical Device: Graduated compression elastic hosiery Consult Discharge Plan - Plan Referrals: Jayla Recinos, APPLICATION SOFTWARE DEVELOPER [Primary Care Provider] - <Horace George Tony - Last Filed: 10/13/17 19:33> Date of Encounter: 10/13/17 - Assessment and plan (1) Dementia Current Visit: No Status: Chronic Qualifiers: Dementia type: Alzheimer's disease Alzheimer's disease onset: unspecified onset Dementia behavioral disturbance: without behavioral disturbance Qualified Code(s): G30.9 - Alzheimer's disease, unspecified; F02.80 - Dementia in other diseases classified elsewhere without behavioral disturbance (2) Multifocal atrial tachycardia Current Visit: No Status: Resolved (3) Pneumothorax Current Visit: Yes Status: Acute Qualifiers: Pneumothorax type: spontaneous, primary Qualified Code(s): J93.11 - Primary spontaneous pneumothorax (4) Hypoxia Current Visit: Yes Status: Resolved (5) Diastolic CHF Current Visit: Yes Status: Chronic Qualifiers: Heart failure chronicity: chronic Qualified Code(s): I50.32 - Chronic diastolic (congestive) heart failure (6) Chronic venous stasis dermatitis of both lower extremities Current Visit: No Status: Chronic - Time Spent With Patient Total time spent is greater than 50% in coordination of care (as documented) at patient's floor/unit and/or counseling patient: - Constitutional Vitals: Temp Pulse Resp BP Pulse Ox 97.5 F L 94 18 128/76 94 10/13/17 16:07 10/13/17 16:07 10/13/17 16:07 10/13/17 16:07 10/13/17 16:07 Internal Medicine: Result - Labs CBC & Chem 7: 10/10/17 00:59 10/10/17 00:59 - ABG Interpretation ABG results: PT/INR, D-dimer PT 13.2 Seconds (9.4-12.1) H 10/11/17 17:01 - Impressions Impressions Chest X-Ray 10/13/17 06:00 IMPRESSION: Right-sided chest tube remains in place. No appreciable pneumothorax on the right seen. Subcutaneous emphysema right chest wall persists. D/ / 10/13/2017 07:30:17 Raghav Perez MD / mercedes Interpreting Provider: Raghav Perez MD - Attending Attestation I examined this patient and my medical decision-making was reviewed with the Resident Physician on 10/13/17. I agree with the documented findings, disposition and treatment plan as described except to the extent set forth below. Mr Reynolds is currently admitted for acute PTX. He remains moderate to high risk due to potential for worsening clinical status. Mr Reynolds is resting. No fever or chills. No other acute issues. Exam alert Comfortable at this time. Mucus membranes dry Heart reg No wheeze I/P 1. PTX 2. Dementia Further diagnoses and plan as above.
--- NOTE | 2017-10-13 11:30 | Electrocardiograph Report ---
[place] [id number] Test Date: 2017-10-09 Pat Name: Pete Reynolds Department: 103 Room: 2N3 Gender: M Catering Assistant: POONAM : 1935 Requested By: Francisco Javier Richardson Order Number: [id number] Reading MD: Bakari Hinson Measurements Intervals [place] Rate: 106 P: 81 NE: 149 QRS: -26 QRSD: 92 T: 49 QT: 346 QTc: 408 Interpretive Statements SINUS TACHYCARDIA WITH OCCASIONAL ECTOPIC PREMATURE COMPLEXES BORDERLINE LEFT AXIS DEVIATION Electronically Signed On 10-13-2017 11:28:24 EDT by Bakari Hinson
[2017-10-14] MEDS: Haloperidol Lactate 5 MG/ML VIAL IVP PRN (00:20)
--- NOTE | 2017-10-14 07:23 | Cardiothoracic Progress Note ---
Date of Encounter: 10/14/17 Time of Encounter: 07:21 - Assessment and plan (1) Multifocal pneumonia Current Visit: No Status: Acute We will check a chest x-ray tomorrow morning. Hopefully, we can remove the chest tube tomorrow. - Subjective Interval history: The patient has no complaints. Vital Signs, Last 4 Hours Pulse Resp BP Pulse Ox 10/14/17 04:32 94 18 150/85 96 Oxgyen Flow Rate Oxygen Flow Rate (LPM) 2 Clinical Data, last 8 Hours Output, Urine Amount 0 Output, Urine Amount 275 Weight 10/12/17 10/13/17 10/14/17 23:59 23:59 23:59 Weight 73.8 kg 73.3 kg Lungs are clear to percussion and auscultation. Heart is in a normal sinus rhythm. Chest tube drainage is minimal and there is no air leak. The chest tube was taken off suction. - Labs 10/10/17 00:59 10/10/17 00:59 - VTE Documentation of Mechanical Device: Graduated compression elastic hosiery Consult Discharge Plan - Plan Referrals: Jayla Recinos, INTERIOR SPECIALIST [Primary Care Provider] -
--- NOTE | 2017-10-14 08:42 | Internal Med Progress Note ---
<Kedar Cano - Last Filed: 10/14/17 10:49> Date of Encounter: 10/14/17 Time of Encounter: 10:49 - Assessment and plan (1) Pneumothorax Current Visit: Yes Status: Acute Assessment and plan: Hypoxia and tachycardia secondary to Right spontaneous pneumothorax S/P chest tube placement Chest tube was placed 10/11/17 Cardiothoracic surgery and pulmonary on board. -Chest tube off suction. Possibly remove chest tube tomorrow if there is no air leak. High risk of respiratory failure Qualifiers: Pneumothorax type: spontaneous, primary Qualified Code(s): J93.11 - Primary spontaneous pneumothorax (2) Dementia Current Visit: Yes Status: Chronic Assessment and plan: History of dementia. Stable Has episodes of agitation in the afternoon according to family. Continue sitter as the patient pulled 1 chest tube already -May need restraints if attempts to pull tube again. -Haldol prn agitation -Continue donepezil. Qualifiers: Dementia type: Alzheimer's disease Alzheimer's disease onset: unspecified onset Dementia behavioral disturbance: without behavioral disturbance Qualified Code(s): G30.9 - Alzheimer's disease, unspecified; F02.80 - Dementia in other diseases classified elsewhere without behavioral disturbance (3) Multifocal atrial tachycardia Current Visit: Yes Status: Resolved Assessment and plan: History of MAT, currently controlled. Continue metoprolol (4) Diastolic CHF Current Visit: Yes Status: Chronic Assessment and plan: Mild diastolic CHF, no exacerbation Stable Qualifiers: Heart failure chronicity: chronic Qualified Code(s): I50.32 - Chronic diastolic (congestive) heart failure - Time Spent With Patient Total time spent is greater than 50% in coordination of care (as documented) at patient's floor/unit and/or counseling patient: - Subjective Interval history: No acute overnight events. Patient comfortable in bed sleeping this morning. Easily arousable. He is alert to self only. He has no complaints. - Constitutional Vitals: Temp Pulse Resp BP Pulse Ox 97.5 F L 90 18 129/76 94 10/13/17 16:07 10/14/17 08:09 10/14/17 04:32 10/14/17 08:09 10/14/17 08:09 General appearance: Present: A&O X 1, pleasant, no acute distress, answers questions appropriately - Other Additional findings: General: Pleasant without distress Heart: Regular rate and rhythm with no murmur Lungs: Clear to auscultation bilaterally. Right chest tube in place. Off suction. No air leak Abdomen: Soft nontender, nondistended positive bowel sounds Skin: warm and dry, absent rash Extremities: Absent pedal edema, Neuro: Alert to self not to place time or situation Vascular: Pedal and radial pulses 2 out of 4 Internal Medicine: Result - Labs CBC & Chem 7: 10/10/17 00:59 10/10/17 00:59 - ABG Interpretation ABG results: PT/INR, D-dimer PT 13.2 Seconds (9.4-12.1) H 10/11/17 17:01 - VTE Documentation of Mechanical Device: Graduated compression elastic hosiery Consult Discharge Plan - Plan Referrals: Jayla Recinos CNP [Primary Care Provider] - <Horace George - Last Filed: 10/14/17 18:24> Date of Encounter: 10/14/17 - Assessment and plan (1) Pneumothorax Current Visit: Yes Status: Acute Qualifiers: Pneumothorax type: spontaneous, primary Qualified Code(s): J93.11 - Primary spontaneous pneumothorax (2) Dementia Current Visit: Yes Status: Chronic Qualifiers: Dementia type: Alzheimer's disease Alzheimer's disease onset: unspecified onset Dementia behavioral disturbance: without behavioral disturbance Qualified Code(s): G30.9 - Alzheimer's disease, unspecified; F02.80 - Dementia in other diseases classified elsewhere without behavioral disturbance (3) Multifocal atrial tachycardia Current Visit: Yes Status: Resolved (4) Diastolic CHF Current Visit: Yes Status: Chronic Qualifiers: Heart failure chronicity: chronic Qualified Code(s): I50.32 - Chronic diastolic (congestive) heart failure - Time Spent With Patient Total time spent is greater than 50% in coordination of care (as documented) at patient's floor/unit and/or counseling patient: - Constitutional Vitals: Temp Pulse Resp BP Pulse Ox 97.4 F L 92 18 131/79 97 10/14/17 15:52 10/14/17 15:52 10/14/17 15:52 10/14/17 15:52 10/14/17 15:52 Internal Medicine: Result - Labs CBC & Chem 7: 10/10/17 00:59 10/10/17 00:59 - ABG Interpretation ABG results: PT/INR, D-dimer PT 13.2 Seconds (9.4-12.1) H 10/11/17 17:01 - Attending Attestation I examined this patient and my medical decision-making was reviewed with the Resident Physician on 10/14/17. I agree with the documented findings, disposition and treatment plan as described except to the extent set forth below. Mr Reynolds is currently admitted for acute PTX. He remains moderate to high risk due to potential for worsening clinical status. Mr Reynolds is resting comfortably. No fever or chills. No other new issues. Chest tube at water seal. Exam alert Comfortable Mucus membranes dry Heart reg No wheeze I/P 1. PTX 2. Dementia Discharge planning. Further diagnoses and plan as above.
[2017-10-14] MEDS: Multivit/Ca/Min/Fe/FA 1 TAB TABLET PO SCH (10:18)
--- NOTE | 2017-10-15 07:19 | Cardiothoracic Progress Note ---
Date of Encounter: 10/15/17 Time of Encounter: :18 - Assessment and plan (1) Pneumothorax Current Visit: Yes Status: Acute The patient is resting comfortably in his hospital bed. The chest tube has no air leak today and the chest x-ray shows no recurrent pneumothorax. The chest tube should remain on waterseal for another day. If there is no air leak in the chest x-ray shows no pneumothorax tomorrow, the chest tube will be removed.. The assessment and plan as outlined above was discussed with the patient and/or family members who expressed understanding and agreement. All questions were answered. Qualifiers: Pneumothorax type: spontaneous, primary Qualified Code(s): J93.11 - Primary spontaneous pneumothorax - Subjective Interval history: The patient is resting comfortably in his hospital bed. He has no respiratory distress. Vital Signs, Last 4 Hours Temp Pulse Resp BP Pulse Ox 10/15/17 07:05 97.8 F 62 16 110/75 100 10/15/17 06:44 93 16 138/92 95 10/15/17 04:00 97.6 F 90 16 128/76 96 Oxgyen Flow Rate Oxygen Flow Rate (LPM) 2 Clinical Data, last 8 Hours Output, Chest Tube Drainage 42 Amount [Right Lateral Chest] Output, Urine Amount 75 Output, Urine Amount 100 Weight 10/13/17 10/14/17 10/15/17 23:59 23:59 23:59 Weight 73.3 kg - Physical Examination General: Conversant, No Apparent Distress Neck: No JVD, Normal carotid pulses Cardiac: Reg Rate and Rhythm, Normal S1 and S2, No Murmur Incision: No signs of infection, Dry/intact dressing Chest tubes: Minimal drainage, Other (No air leak) Lungs: Normal Breath Sounds, No Wheeze, Rales, Rhonchi Neuro: Alert and responsive, No focal deficits noted Vascular: Normal capillary refill Extremities: No Clubbing, No Cyanosis, No Edema - Labs 10/10/17 00:59 10/10/17 00:59 - Imaging Chest Xray: image reviewed (No pneumothorax. Stable chest wall subcutaneous emphysema.) - VTE Documentation of Mechanical Device: Graduated compression elastic hosiery Consult Discharge Plan - Plan Referrals: Jayla Recinos, NURSE AUDITOR [Primary Care Provider] -
--- NOTE | 2017-10-15 08:38 | Internal Med Progress Note ---
<HarrietshashaAndrew solano - Last Filed: 10/15/17 14:53> Date of Encounter: 10/15/17 Time of Encounter: 08:38 - Assessment and plan (1) Pneumothorax Current Visit: Yes Status: Acute Assessment and plan: Hypoxia and tachycardia secondary to Right spontaneous pneumothorax S/P chest tube placement Chest tube was placed 10/11/17 Cardiothoracic surgery and pulmonary on board. -Chest tube off suction, possibly remove tomorrow. High risk of respiratory failure Qualifiers: Pneumothorax type: spontaneous, primary Qualified Code(s): J93.11 - Primary spontaneous pneumothorax (2) Dementia Current Visit: Yes Status: Chronic Assessment and plan: History of dementia. Stable Has episodes of agitation in the afternoon according to family. Continue sitter as the patient pulled 1 chest tube already -May need restraints if attempts to pull tube again. -Haldol prn agitation -Continue donepezil. Qualifiers: Dementia type: Alzheimer's disease Alzheimer's disease onset: unspecified onset Dementia behavioral disturbance: without behavioral disturbance Qualified Code(s): G30.9 - Alzheimer's disease, unspecified; F02.80 - Dementia in other diseases classified elsewhere without behavioral disturbance (3) Multifocal atrial tachycardia Current Visit: Yes Status: Resolved Assessment and plan: History of MAT, currently controlled. Continue metoprolol (4) Diastolic CHF Current Visit: Yes Status: Chronic Assessment and plan: Mild diastolic CHF, no exacerbation Stable Qualifiers: Heart failure chronicity: chronic Qualified Code(s): I50.32 - Chronic diastolic (congestive) heart failure - Time Spent With Patient Total time spent is greater than 50% in coordination of care (as documented) at patient's floor/unit and/or counseling patient: - Subjective Interval history: Mr. Reynolds is doing well this morning. Patient continues to be pleasently demented with alert to person only. Patient otherwise has no complaints. Denies fevers, chills, sweats, nausea, vomiting, chest pain, shortness of breath , abdominal pain, changes in bowels or bladder, weakness, loss of sensation. - Constitutional Vitals: Temp Pulse Resp BP Pulse Ox 97.6 F 93 16 138/92 100 10/15/17 04:00 10/15/17 06:44 10/15/17 06:44 10/15/17 06:44 10/15/17 07:05 General appearance: Present: A&O X 1, pleasant, no acute distress, answers questions appropriately - Head Head exam: Present: atraumatic, normal inspection, normocephalic - Eye Eye exam: Present: EOMI, normal appearance - ENT ENT exam: Present: mucous membranes moist, normal exam - Neck Neck exam general surgery: Present: full ROM, normal inspection - Respiratory Respiratory exam: Present: CTAB. Absent: rhonchi, wheezes Additional comments: diminished breath sounds, light coarse breath sounds on right side, subcutaneous emphysema palpated over right chest wall, chest tube present. - Cardiovascular Cardiovascular exam: Present: RRR, +S1, +S2 - GI/Abdominal GI/Abdominal exam: Present: normal bowel sounds, soft. Absent: distended, tenderness - Extremities Exam Extremities exam: Present: full ROM, normal inspection, warm, radial pulses palpable and symmetrical. Absent: pedal edema - Skin Skin exam: Present: dry, intact, normal color, warm Internal Medicine: Result - Labs CBC & Chem 7: 10/10/17 00:59 10/10/17 00:59 - ABG Interpretation ABG results: PT/INR, D-dimer PT 13.2 Seconds (9.4-12.1) H 10/11/17 17:01 - Impressions Impressions Chest X-Ray 10/15/17 00:01 IMPRESSION: 1. Stable lines and tubes. 2. No discrete pneumothorax. 3. Trace bilateral effusions. 4. Subcutaneous gas along the right lateral chest wall. D/ / 10/15/2017 07:44:46 Jenna Boston MD / shaista Interpreting Provider: Jenna Boston MD - VTE Documentation of Mechanical Device: Graduated compression elastic hosiery Consult Discharge Plan - Plan Referrals: Jayla Recinos CNP [Primary Care Provider] - <Horace George - Last Filed: 10/15/17 16:55> Date of Encounter: 10/15/17 - Assessment and plan (1) Dementia Current Visit: Yes Status: Chronic Qualifiers: Dementia type: Alzheimer's disease Alzheimer's disease onset: unspecified onset Dementia behavioral disturbance: without behavioral disturbance Qualified Code(s): G30.9 - Alzheimer's disease, unspecified; F02.80 - Dementia in other diseases classified elsewhere without behavioral disturbance (2) Multifocal atrial tachycardia Current Visit: Yes Status: Resolved (3) Pneumothorax Current Visit: Yes Status: Acute Qualifiers: Pneumothorax type: spontaneous, primary Qualified Code(s): J93.11 - Primary spontaneous pneumothorax (4) Diastolic CHF Current Visit: Yes Status: Chronic Qualifiers: Heart failure chronicity: chronic Qualified Code(s): I50.32 - Chronic diastolic (congestive) heart failure - Time Spent With Patient Total time spent is greater than 50% in coordination of care (as documented) at patient's floor/unit and/or counseling patient: - Constitutional Vitals: Temp Pulse Resp BP Pulse Ox 97.6 F 86 22 133/82 97 10/15/17 04:00 10/15/17 15:18 10/15/17 15:18 10/15/17 15:18 10/15/17 15:18 Internal Medicine: Result - Labs CBC & Chem 7: 10/10/17 00:59 10/10/17 00:59 - ABG Interpretation ABG results: PT/INR, D-dimer PT 13.2 Seconds (9.4-12.1) H 10/11/17 17:01 - Impressions Impressions Chest X-Ray 10/15/17 00:01 IMPRESSION: 1. Stable lines and tubes. 2. No discrete pneumothorax. 3. Trace bilateral effusions. 4. Subcutaneous gas along the right lateral chest wall. D/ / 10/15/2017 07:44:46 Jenna Boston MD / shaista Interpreting Provider: Jenna Boston MD - Attending Attestation I examined this patient and my medical decision-making was reviewed with the Resident Physician on 10/15/17. I agree with the documented findings, disposition and treatment plan as described except to the extent set forth below. Mr Reynolds is currently admitted for PTX. He remains moderate to high risk due to potential for worsening clinical status. Mr Reynolds is doing OK. No complaints. Tired. Exam alert Comfortable Mucus membranes dry Heart distant Lungs diminished I/P 1. PTX 2. Dementia Further diagnoses and plan as above.
[2017-10-15] MEDS: Multivit/Ca/Min/Fe/FA 1 TAB TABLET PO SCH (08:55)
[2017-10-15] MEDS: Haloperidol Lactate 5 MG/ML VIAL IVP PRN (16:57)
[2017-10-16 05:15] LABS: Basophils % 0.5 %; Eosinophils # 0.2 K/mcL (0.0-0.6); Eosinophils % 4.2 %; Hematocrit 39.3 % (37.5-50.1); Hemoglobin 12.9 g/dL (12.9-16.9); Immature Granulocytes % 0.7 % (0-4); Lymphocytes # 0.8 K/mcL (0.6-4.6); Lymphocytes % 19.3 %; Mean Corpuscular HGB Conc 32.8 g/dL (31.6-35.5); Mean Corpuscular Hemoglobin 28.7 pg (28.0-33.3); Mean Corpuscular Volume 87.3 fL (83.0-100.0); Mean Platelet Volume 9.5 fL (9.4-12.4); Monocytes # 0.5 K/mcL (0.0-1.3); Monocytes % 10.4 %; Neutrophils # 2.8 K/mcL (1.6-8.9); Platelet Count 154 K/mcL (140-400); Red Cell Distribution Width 15.7 % (11.5-14.5); Segmented Neutrophils % 64.9 %
[2017-10-16 05:21] LABS: INR 1.2; Prothrombin Time 12.5 Seconds (9.4-12.1)
[2017-10-16] MEDS: Multivit/Ca/Min/Fe/FA 1 TAB TABLET PO SCH (09:01)
--- NOTE | 2017-10-16 10:30 | Cardiothoracic Progress Note ---
Date of Encounter: 10/16/17 Time of Encounter: 10:29 - Assessment and plan (1) Pneumothorax Current Visit: Yes Status: Acute The patient is resting comfortably in his hospital bed. The chest tube has no air leak today and the chest x-ray shows no recurrent pneumothorax. The chest tube was removed. The assessment and plan as outlined above was discussed with the patient and/or family members who expressed understanding and agreement. All questions were answered. Qualifiers: Pneumothorax type: spontaneous, primary Qualified Code(s): J93.11 - Primary spontaneous pneumothorax - Subjective Interval history: The patient is resting comfortably in his hospital bed. He has no respiratory distress. Vital Signs, Last 4 Hours Temp Pulse Resp BP Pulse Ox 10/16/17 07:08 97.7 F 95 16 133/81 93 Oxgyen Flow Rate Oxygen Flow Rate (LPM) 2 Clinical Data, last 8 Hours Output, Chest Tube Drainage 275 Amount [Right Lateral Chest] Output, Urine Amount 300 Weight 10/14/17 10/15/17 10/16/17 23:59 23:59 23:59 Weight 72.6 kg - Physical Examination General: Conversant, No Apparent Distress Neck: No JVD, Normal carotid pulses Cardiac: Reg Rate and Rhythm, Normal S1 and S2, No Murmur Incision: No signs of infection, Dry/intact dressing Chest tubes: Minimal drainage, Other (No air leak) Lungs: Normal Breath Sounds, No Wheeze, Rales, Rhonchi Neuro: Alert and responsive, No focal deficits noted Vascular: Normal capillary refill Extremities: No Clubbing, No Cyanosis, No Edema - Labs 10/16/17 04:57 10/10/17 00:59 Lab Results, Last 24 hours 10/16/17 10/16/17 04:57 04:57 WBC 4.3 Hgb 12.9 Hct 39.3 Plt Count 154 INR 1.2 - Imaging Chest Xray: image reviewed (No pneumothorax. Stable subcutaneous emphysema.) - VTE Documentation of Mechanical Device: Graduated compression elastic hosiery Consult Discharge Plan - Plan Referrals: Jayla Recinos, CORPORATE DEVELOPMENT MANAGER [Primary Care Provider] -
--- NOTE | 2017-10-16 11:15 | Internal Med Progress Note ---
<IvetAndrew Randolph - Last Filed: 10/16/17 11:19> Date of Encounter: 10/16/17 Time of Encounter: 11:13 - Assessment and plan (1) Pneumothorax Current Visit: Yes Status: Acute Assessment and plan: Hypoxia and tachycardia secondary to right spontaneous pneumothorax s/p chest tube plaacement. Chest tube placed 10/11/17, removed 10/16/17. Cardiothoracic surgery and pulm on board Disontinue sitter as chest tube is now removed. Satting well on room air. Qualifiers: Pneumothorax type: spontaneous, primary Qualified Code(s): J93.11 - Primary spontaneous pneumothorax (2) Dementia Current Visit: Yes Status: Chronic Assessment and plan: History of dementia. Stable Has episodes of agitation in the afternoon according to family. -May need restraints if attempts to pull tube again. -Haldol prn agitation -Continue donepezil. -Discontinued sitter as chest tube is now out. Qualifiers: Dementia type: Alzheimer's disease Alzheimer's disease onset: unspecified onset Dementia behavioral disturbance: without behavioral disturbance Qualified Code(s): G30.9 - Alzheimer's disease, unspecified; F02.80 - Dementia in other diseases classified elsewhere without behavioral disturbance (3) Multifocal atrial tachycardia Current Visit: No Status: Resolved Assessment and plan: History of MAT, currently controlled. Continue metoprolol (4) Diastolic CHF Current Visit: No Status: Chronic Assessment and plan: Mild diastolic CHF, no exacerbation Stable Qualifiers: Heart failure chronicity: chronic Qualified Code(s): I50.32 - Chronic diastolic (congestive) heart failure - Time Spent With Patient Total time spent is greater than 50% in coordination of care (as documented) at patient's floor/unit and/or counseling patient: - Subjective Interval history: Mr. Reynolds is doing well this morning. Patient continues to be pleasently demented with alert to person only. Patient otherwise has no complaints. Chest tube removed this morning, no air leak, no respiratory distress. Denies fevers, chills, sweats, nausea, vomiting, chest pain, shortness of breath, abdominal pain, changes in bowels or bladder, weakness, loss of sensation. - Constitutional Vitals: Temp Pulse Resp BP Pulse Ox 97.6 F 83 20 128/79 95 10/16/17 11:10/16/17 11:10/16/17 11:09 10/16/17 11:10/16/17 11:09 General appearance: Present: A&O X 1 (to person only.), pleasant, no acute distress, answers questions appropriately - Head Head exam: Present: atraumatic, normal inspection, normocephalic - Eye Eye exam: Present: EOMI, normal appearance - ENT ENT exam: Present: mucous membranes moist, normal exam - Neck Neck exam general surgery: Present: full ROM, normal inspection, supple, trachea midline - Respiratory Respiratory exam: Present: rales (minimal rales noted, chest tube removed and area dry nonerythematous.). Absent: respiratory distress, rhonchi, wheezes - Cardiovascular Cardiovascular exam: Present: RRR, +S1, +S2 - GI/Abdominal GI/Abdominal exam: Present: normal bowel sounds, soft. Absent: distended, tenderness - Extremities Exam Extremities exam: Present: full ROM, normal inspection, warm, radial pulses palpable and symmetrical. Absent: pedal edema - Skin Skin exam: Present: dry, intact, normal color, warm. Absent: rash Internal Medicine: Result - Labs CBC & Chem 7: 10/16/17 04:57 10/10/17 00:59 Labs: Short CBC 10/16/17 Range/Units 04:57 WBC 4.3 (4.3-11.1) K/mcL Hgb 12.9 (12.9-16.9) g/dL Hct 39.3 (37.5-50.1) % Plt Count 154 (140-400) K/mcL Neutrophils # 2.8 (1.6-8.9) K/mcL - ABG Interpretation ABG results: PT/INR, D-dimer PT 12.5 Seconds (9.4-12.1) H 10/16/17 04:57 - Impressions Impressions Chest X-Ray 10/11/17 10:51 IMPRESSION: Interval placement of a large 4th right thoracostomy tube with interval improvement of a right pneumothorax. Subcutaneous emphysema in the right chest wall. Bibasilar atelectasis. D/ / 10/11/2017 11:20:26 Harriet Robles MD / shaista Interpreting Provider: Harriet Robles MD Chest X-Ray 10/12/17 07:22 IMPRESSION: 1. Right thoracostomy tube in place. There may be a tiny subtle residual apical pneumothorax. 2. Blunting of the left costophrenic angle which could reflect a small pleural effusion. D/ / 10/12/2017 09:16:12 Harriet Robles MD / [facility] Interpreting Provider: Harriet Robles MD Chest X-Ray 10/16/17 06:00 IMPRESSION: No acute abnormalities. No evidence of pneumothorax. Sign or D/ / Matty Knapp MD / Matty Knapp MD Interpreting Provider: Matty Knapp MD - VTE Documentation of Mechanical Device: Graduated compression elastic hosiery Consult Discharge Plan - Plan Referrals: Jayla Recinos, DEVELOPMENT DIRECTOR [Primary Care Provider] - <Horace George - Last Filed: 10/16/17 18:50> Date of Encounter: 10/16/17 - Assessment and plan (1) Dementia Current Visit: Yes Status: Chronic Qualifiers: Dementia type: Alzheimer's disease Alzheimer's disease onset: unspecified onset Dementia behavioral disturbance: without behavioral disturbance Qualified Code(s): G30.9 - Alzheimer's disease, unspecified; F02.80 - Dementia in other diseases classified elsewhere without behavioral disturbance (2) Multifocal atrial tachycardia Current Visit: No Status: Resolved (3) Pneumothorax Current Visit: Yes Status: Acute Qualifiers: Pneumothorax type: spontaneous, primary Qualified Code(s): J93.11 - Primary spontaneous pneumothorax (4) Diastolic CHF Current Visit: No Status: Chronic Qualifiers: Heart failure chronicity: chronic Qualified Code(s): I50.32 - Chronic diastolic (congestive) heart failure - Time Spent With Patient Total time spent is greater than 50% in coordination of care (as documented) at patient's floor/unit and/or counseling patient: - Constitutional Vitals: Temp Pulse Resp BP Pulse Ox 97.7 F 91 18 137/83 92 10/16/17 14:58 10/16/17 14:58 10/16/17 14:58 10/16/17 14:58 10/16/17 14:58 Internal Medicine: Result - Labs CBC & Chem 7: 10/16/17 04:57 10/10/17 00:59 Labs: Short CBC 10/16/17 Range/Units 04:57 WBC 4.3 (4.3-11.1) K/mcL Hgb 12.9 (12.9-16.9) g/dL Hct 39.3 (37.5-50.1) % Plt Count 154 (140-400) K/mcL Neutrophils # 2.8 (1.6-8.9) K/mcL - ABG Interpretation ABG results: PT/INR, D-dimer PT 12.5 Seconds (9.4-12.1) H 10/16/17 04:57 - Impressions Impressions Chest X-Ray 10/11/17 10:51 IMPRESSION: Interval placement of a large 4th right thoracostomy tube with interval improvement of a right pneumothorax. Subcutaneous emphysema in the right chest wall. Bibasilar atelectasis. D/ / 10/11/2017 11:20:26 Harriet Robles MD / [facility] Interpreting Provider: Harriet Robles MD Chest X-Ray 10/12/17 07:22 IMPRESSION: 1. Right thoracostomy tube in place. There may be a tiny subtle residual apical pneumothorax. 2. Blunting of the left costophrenic angle which could reflect a small pleural effusion. D/ /12/2017 09:16:12 Harriet Robles MD / [facility] Interpreting Provider: Harriet Robles MD Chest X-Ray 10/16/17 06:00 IMPRESSION: No acute abnormalities. No evidence of pneumothorax. Sign or D/ / Matty Knapp MD / Matty Knapp MD Interpreting Provider: Matty Knapp MD - Attending Attestation I examined this patient and my medical decision-making was reviewed with the Resident Physician on 10/16/17. I agree with the documented findings, disposition and treatment plan as described except to the extent set forth below. Mr Reynolds is currently admitted for PTX. He remains moderate to high risk due to potential for worsening clinical status. Mr Reynolds had CT out today. No fever or chills. Denies pain. Exam alert Comfortable Mucus membranes dry Heart reg No wheeze I/P 1. PTX 2. Dementia Further diagnoses and plan as above.
[2017-10-17] MEDS: Multivit/Ca/Min/Fe/FA 1 TAB TABLET PO SCH (09:12)
--- NOTE | 2017-10-17 09:48 | Internal Med Progress Note ---
<Andrew Cooney Randolph - Last Filed: 10/17/17 13:29> Date of Encounter: 10/17/17 Time of Encounter: 09:48 - Assessment and plan (1) Pneumothorax Status: Acute Assessment and plan: Hypoxia and tachycardia secondary to right spontaneous pneumothorax s/p chest tube plaacement. Chest tube placed 10/11/17, removed 10/16/17. Cardiothoracic surgery and pulm on board Disontinued sitter as chest tube is now removed. Satting well on room air. Qualifiers: Pneumothorax type: spontaneous, primary Qualified Code(s): J93.11 - Primary spontaneous pneumothorax (2) Dementia Status: Chronic Assessment and plan: History of dementia. Stable Has episodes of agitation in the afternoon according to family. -Haldol prn agitation -Continue donepezil. -Discontinued sitter as chest tube is now out. Qualifiers: Dementia type: Alzheimer's disease Alzheimer's disease onset: unspecified onset Dementia behavioral disturbance: without behavioral disturbance Qualified Code(s): G30.9 - Alzheimer's disease, unspecified; F02.80 - Dementia in other diseases classified elsewhere without behavioral disturbance (3) Multifocal atrial tachycardia Status: Resolved Assessment and plan: History of MAT, currently controlled. Continue metoprolol (4) Diastolic CHF Status: Chronic Assessment and plan: Mild diastolic CHF, no exacerbation Stable Qualifiers: Heart failure chronicity: chronic Qualified Code(s): I50.32 - Chronic diastolic (congestive) heart failure - Time Spent With Patient Total time spent is greater than 50% in coordination of care (as documented) at patient's floor/unit and/or counseling patient: - Subjective Interval history: Mr. Reynolds is doing well this morning. He continues to be pleasently demented with alert to person only. Otherwise denies chest pain, shortness of breath, or cough. Denies fevers, chills, sweats, nausea, vomiting, chest pain, shortness of breath, abdominal pain, changes in bowels or bladder, weakness, loss of sensation or rash. Repeat bp 111/72 after morning meds. - Constitutional Vitals: Temp Pulse Resp BP Pulse Ox 98.0 F 112 18 151/104 95 10/17/17 07:05 10/17/17 07:05 10/17/17 07:05 10/17/17 07:05 10/17/17 07:05 General appearance: Present: A&O X 1 (to person only.), pleasant, no acute distress, answers questions appropriately Exam: face appears flushed, bp highly elevated, normal appearance after reexamination 1 hour later after morning meds given and bp 111/72 - Head Head exam: Present: atraumatic, normal inspection, normocephalic - Eye Eye exam: Present: EOMI, normal appearance - ENT ENT exam: Present: mucous membranes moist, normal exam - Neck Neck exam general surgery: Present: full ROM, normal inspection, supple, trachea midline - Respiratory Respiratory exam: Present: rales (right sided and subcutaneous emphysema). Absent: respiratory distress, rhonchi, wheezes - Cardiovascular Cardiovascular exam: Present: RRR, +S1, +S2 Additional comments: Right sided chest site is clean and dry. - GI/Abdominal GI/Abdominal exam: Present: normal bowel sounds, soft. Absent: distended, tenderness - Extremities Exam Extremities exam: Present: full ROM, pedal edema (minimal bilateral nonpitting edema, stasis skin changes lower extremities, pulses present bilaterally.), warm , radial pulses palpable and symmetrical - Skin Skin exam: Present: dry, intact, normal color, warm. Absent: rash Internal Medicine: Result - Labs CBC & Chem 7: 10/16/17 04:57 10/10/17 00:59 - ABG Interpretation ABG results: PT/INR, D-dimer PT 12.5 Seconds (9.4-12.1) H 10/16/17 04:57 - Impressions Impressions Chest X-Ray 10/17/17 06:00 IMPRESSION: Interval removal of right-sided chest tube. No recurrent pneumothorax. Persistent airspace changes in the right lung apex. D/ / Ariel Zamudio MD / Ariel Zamudio MD Interpreting Provider: Ariel Zamudio MD - VTE Documentation of Mechanical Device: Graduated compression elastic hosiery Consult Discharge Plan - Plan Instructions: Heart Failure (DC), Spontaneous Pneumothorax (DC), Cellulitis (DC ), Pneumonia (DC) Referrals: Jayla Recinos, VENEER GLUER [Primary Care Provider] - <Horace George - Last Filed: 10/17/17 18:24> Date of Encounter: 10/17/17 - Assessment and plan (1) Dementia Status: Chronic Qualifiers: Dementia type: Alzheimer's disease Alzheimer's disease onset: unspecified onset Dementia behavioral disturbance: without behavioral disturbance Qualified Code(s): G30.9 - Alzheimer's disease, unspecified; F02.80 - Dementia in other diseases classified elsewhere without behavioral disturbance (2) Multifocal atrial tachycardia Status: Resolved (3) Pneumothorax Status: Acute Qualifiers: Pneumothorax type: spontaneous, primary Qualified Code(s): J93.11 - Primary spontaneous pneumothorax (4) Diastolic CHF Status: Chronic Qualifiers: Heart failure chronicity: chronic Qualified Code(s): I50.32 - Chronic diastolic (congestive) heart failure - Time Spent With Patient Total time spent is greater than 50% in coordination of care (as documented) at patient's floor/unit and/or counseling patient: - Constitutional Vitals: Temp Pulse Resp BP Pulse Ox 97.4 F L 91 18 130/80 90 10/17/17 11:20 10/17/17 11:20 10/17/17 11:20 10/17/17 11:20 10/17/17 11:20 Internal Medicine: Result - Labs CBC & Chem 7: 10/16/17 04:57 10/10/17 00:59 - ABG Interpretation ABG results: PT/INR, D-dimer PT 12.5 Seconds (9.4-12.1) H 10/16/17 04:57 - Impressions Impressions Chest X-Ray 10/17/17 06:00 IMPRESSION: Interval removal of right-sided chest tube. No recurrent pneumothorax. Persistent airspace changes in the right lung apex. D/ / Ariel Zamudio MD / Ariel Zamudio MD Interpreting Provider: Ariel Zamudio MD - Attending Attestation See discharge summary of this date.
[2017-10-17 11:22] VITALS: BP 130/80
--- NOTE | 2017-10-17 12:57 | Cardiothoracic Progress Note ---
Date of Encounter: 10/17/17 Time of Encounter: 12:56 - Subjective Procedure(s) Performed: Patient seen and examined. Currently sitting up in chair in no acute distress. He clearly has issues with dementia. Chest x-ray reviewed with no evidence of pneumothorax. Reportedly doing well by nursing report agree with current management plan.. Vital Signs, Last 4 Hours Temp Pulse Resp BP Pulse Ox 10/17/17 11:20 97.4 F L 91 18 130/80 90 Oxgyen Flow Rate Oxygen Flow Rate (LPM) 2 Weight 10/15/17 10/16/17 10/17/17 23:59 23:59 23:59 Weight 72.6 kg 73.1 kg - Physical Examination General: Other (Sitting up in chair, friendly cooperative, confused otherwise) Chest tubes: Other (Chest tube out) - Labs 10/16/17 04:57 10/10/17 00:59 - VTE Documentation of Mechanical Device: Graduated compression elastic hosiery Consult Discharge Plan - Plan Referrals: Jayla Recinos, IS MANAGER [Primary Care Provider] -
--- NOTE | 2017-10-17 13:10 | Discharge Summary ---
<Andrew Cooney - Last Filed: 10/17/17 13:20> - NOTES TO OUTPATIENT PROVIDER Notes to Outpatient Provider: Mr. Reynolds is an 82 yo male with history of CHF, COPD, and dementia who presented to the ED on 10/09/17 with shortness of breath , determined to have a spontaneous pneumothorax. Chest tube was inserted and cardiothoracic surgery was consulted. Chest tube was removed on 10/16/17. Repeat CXR did not reveal evidence of pneumothorax. Patient is to be dischraged to [facility]. Date of Encounter: 10/17/17 Time of Encounter: 13:05 - Discharge Diagnosis (1) Pneumothorax Priority: Primary Status: Acute Assessment and Plan: Hypoxia and tachycardia secondary to right spontaneous pneumothorax s/p chest tube plaacement. Chest tube placed 10/11/17, removed 10/16/17. Cardiothoracic surgery and pulm on board Disontinued sitter as chest tube is now removed. Satting well on room air. Repeat CXR 10/17/17 revealed no evidence of pneumothorax. Patient to be discharged back to [facility], [place]. Qualifiers: Pneumothorax type: spontaneous, primary Qualified Code(s): J93.11 - Primary spontaneous pneumothorax (2) Dementia Priority: Secondary Status: Chronic Assessment and Plan: History of dementia. Stable Has episodes of agitation in the afternoon according to family. -Continue donepezil. Qualifiers: Dementia type: Alzheimer's disease Alzheimer's disease onset: unspecified onset Dementia behavioral disturbance: without behavioral disturbance Qualified Code(s): G30.9 - Alzheimer's disease, unspecified; F02.80 - Dementia in other diseases classified elsewhere without behavioral disturbance (3) Multifocal atrial tachycardia Priority: Secondary Status: Resolved Assessment and Plan: History of MAT, currently controlled. Continue metoprolol (4) Diastolic CHF Priority: Secondary Status: Chronic Assessment and Plan: Mild diastolic CHF, no exacerbation Stable Qualifiers: Heart failure chronicity: chronic Qualified Code(s): I50.32 - Chronic diastolic (congestive) heart failure Hospital course: Mr. Reynolds is a 82 year old male with history of dementia, CHF, and COPD who presented to the ED on 10/12/17 with complaint of cough and shortness of breath. CXR revealed a large pneumothorax on the right. Chest tube was placed and cardiothoracic surgery was consulted. Patient continued to improve regarding his dyspnea and oxygen saturations and CXR revealed improvement in pnuemothorax with chest tube. Chest tube was removed on 10/16/17 and repeat CXR on 10/17/17 did not reveal a pneumothorax. During hospital stay the patient did have some agitation towards the evenings that did require haldol and restraints as he attempted to pull his chest tube out. On day of discharge Mr. Reynolds is doing well and continues to be pleasantly demented. Otherwise denied chest pain, shortness of breath, or cough. Denies fevers, chills, sweats, nausea, vomiting, chest pain, shortness of breath, abdominal pain, changes in bowels or bladder, weakness, loss of sensation, or rash. Bp repeat after completing morning meds 111/72. Plan to discharge to [facility]. - Time Spent with Patient Total time spent providing and/or coordinating discharge services: - Discharge Medications Home Medications: Ferrous Sulfate [Iron] 325 tab PO DAILY 05/13/17 [History] Metoprolol [Lopressor] 12.5 mg PO BID #60 tablet 05/14/17 [Rx] Donepezil [Aricept] 10 mg PO DAILY 10/09/17 [History] Multivit-Min/FA/Lycopen/Lutein [A Thru Z Select Multivit Tab] 1 tab PO DAILY [History] Allergies/Adverse Reactions: 3 Allergy/AdvReac Type Severity Reaction Status Date / Time levofloxacin AdvReac Rash Verified 05/12/17 22:16 Date of admission: 10/09/17 19:09 Primary care physician: Jayla Recinos CNP Consults: 10/14/17 13:49 PT [Consult to Physical Therapy] [CONS] Routine Comment: Evaluate, develop and implement POC Reason for Consult: Please evaluate for SNF. Does patient have active BEDREST order?: No Is patient medically & hemodynamically stable?: Yes Patient assessed for mobility or mobilized this visit?: Yes 10/14/17 13:50 OT [Consult to Occupational Therapy] [CONS] Routine Comment: Evaluate, develop and implement POC Reason for Consult: Please evaluate for discharge plan Does patient have active BEDREST order?: No Is patient medically & hemodynamically stable?: Yes Patient assessed for mobility or mobilized this visit?: Yes Discharging clinician: Horace George ([facility]) Anticipated date of discharge: 10/17/17 - Constitutional Vitals: Temp Pulse Resp BP Pulse Ox 97.4 F L 91 18 130/80 90 10/17/17 11:20 10/17/17 11:20 10/17/17 11:20 10/17/17 11:20 10/17/17 11:20 General appearance: Present: A&O X 1 (to person only.), pleasant, no acute distress, answers questions appropriately Exam: face appears flushed, bp highly elevated, normal appearance after reexamination 1 hour later after morning meds given and bp 111/72 - Head Head exam: Present: atraumatic, normal inspection, normocephalic - Eye Eye exam: Present: EOMI, normal appearance, PERRL - ENT ENT exam: Present: mucous membranes moist, normal exam - Neck Neck exam general surgery: Present: full ROM, normal inspection, supple, trachea midline. Absent: lymphadenopathy - Respiratory Respiratory exam: Present: rales. Absent: respiratory distress, rhonchi, wheezes Additional comments: right sided and subcutaneous emphysema - Cardiovascular Cardiovascular exam: Present: RRR, +S1, +S2 - GI/Abdominal GI/Abdominal exam: Present: normal bowel sounds, soft. Absent: distended, tenderness - Extremities Exam Extremities exam: Present: full ROM, pedal edema (minimal bilateral nonpitting edema, stasis skin change of lower extremities, pulses present bilaterally), warm, radial pulses palpable and symmetrical - Skin Skin exam: Present: dry, intact, normal color, warm. Absent: rash Additional comments: except as noted above. - Patient Status Disposition: Transfer SNF Condition: Good Functional capacity at discharge: independent ambulation Overall status at discharge: patient is progressing back to baseline - Discharge Instructions Instructions: Heart Failure (DC), Spontaneous Pneumothorax (DC), Cellulitis (DC ), Pneumonia (DC) Follow Up With: Jayla Recinos SPECIAL AGENT [Primary Care Provider] - - Diet and Activity Activity: increase activity as tolerated Diet: advance to your usual diet - VTE Documentation of Mechanical Device: Graduated compression elastic hosiery <Horace George - Last Filed: 10/17/17 17:50> Date of Encounter: 10/17/17 - Discharge Diagnosis (1) Dementia Status: Chronic Qualifiers: Dementia type: Alzheimer's disease Alzheimer's disease onset: unspecified onset Dementia behavioral disturbance: without behavioral disturbance Qualified Code(s): G30.9 - Alzheimer's disease, unspecified; F02.80 - Dementia in other diseases classified elsewhere without behavioral disturbance (2) Multifocal atrial tachycardia Status: Resolved (3) Pneumothorax Status: Acute Qualifiers: Pneumothorax type: spontaneous, primary Qualified Code(s): J93.11 - Primary spontaneous pneumothorax (4) Diastolic CHF Status: Chronic Qualifiers: Heart failure chronicity: chronic Qualified Code(s): I50.32 - Chronic diastolic (congestive) heart failure Hospital course: Mr. Reynolds is a 82 year old male - Time Spent with Patient Total time spent providing and/or coordinating discharge services: 39min Date of admission: 10/09/17 19:09 Primary care physician: Jayla Recinos CNP Consults: 10/14/17 13:49 PT [Consult to Physical Therapy] [CONS] Routine Comment: Evaluate, develop and implement POC Reason for Consult: Please evaluate for SNF. Does patient have active BEDREST order?: No Is patient medically & hemodynamically stable?: Yes Patient assessed for mobility or mobilized this visit?: Yes 10/14/17 13:50 OT [Consult to Occupational Therapy] [CONS] Routine Comment: Evaluate, develop and implement POC Reason for Consult: Please evaluate for discharge plan Does patient have active BEDREST order?: No Is patient medically & hemodynamically stable?: Yes Patient assessed for mobility or mobilized this visit?: Yes - Constitutional Vitals: Temp Pulse Resp BP Pulse Ox 97.4 F L 91 18 130/80 90 10/17/17 11:20 10/17/17 11:20 10/17/17 11:20 10/17/17 11:20 10/17/17 11:20 - Attending Attestation I examined this patient and my medical decision-making was reviewed with the Resident Physician on 10/17/17. I agree with the documented findings, disposition and treatment plan as described except to the extent set forth below. Mr Reynolds has been admitted for spontaneous PTX. He had CT removed yesterday and is doing OK. He is currently afebrile and up and ambulating. He is ready for discharge to SNF. Exam alert Comfortable Mucus membranes dry Heart reg No wheeze Plan D/C to SNF today.
--- NOTE | 2017-10-17 13:35 | Physician Discharge Referral ---
ExtendedCare Referral Info Transfer To: [facility] Provider in Charge: Horace George Provider in Charge after Transfer: PCP - Diagnosis (1) Pneumothorax Priority: Primary Status: Acute (2) Dementia Priority: Secondary Status: Chronic (3) Multifocal atrial tachycardia Priority: Secondary Status: Resolved (4) Diastolic CHF Priority: Secondary Status: Chronic - Transfer Medications Home Medications: Ferrous Sulfate [Iron] 325 tab PO DAILY 05/13/17 [History] Metoprolol [Lopressor] 12.5 mg PO BID #60 tablet 05/14/17 [Rx] Donepezil [Aricept] 10 mg PO DAILY 10/09/17 [History] Multivit-Min/FA/Lycopen/Lutein [A Thru Z Select Multivit Tab] 1 tab PO DAILY [History] Allergies/Adverse Reactions: 3 Allergy/AdvReac Type Severity Reaction Status Date / Time levofloxacin AdvReac Rash Verified 05/12/17 22:16 - Respiratory Orders Smoking Cessation: Smoking cessation has been advised. For more information, call the [place] Tobacco Quit Line at 1-589-TMMD-NOW. - Lab Orders Lab Orders: Other (include drug levels w/frequency) (CXR if develops shortness of breath) - Ancillary Orders May use pressure relief devices daily prn, May consult with Dentist, Rn Mobile, Senior Business Intelligence Analyst PRN - Advance Directives Code Status: Full Code (Attempted to contact family and MPOA multiple times throughout stay. Default to Full Code.) - Mobility Orders Chair - Rehabiliation Orders Rehab Potential: Fair Rehab Orders: ROM Exercises, Evaluation for Physical Therapy, Evaluation for Occupational Therapy - Treatments Skin tear care topically daily PRN per policy, May check for fecal impaction rectally daily PRN, Fleet enema rectally every other day PRN cleansing purposes - Diet Orders Cardiac CERTIFICATION: I certify that the transfer of the above named patient to an Extended Care Facility is necessary for the continuing treatment of the diagnosis listed. The above information is true and accurate reflection of patient's current condition. Confidential - Redisclosure prohibited without a patient's written consent.
== END 2017-10-17 15:21 | DRG 200 ==
LOC: 2NENU 14:08 → EMEROO 14:08 → 2NENU 16:57 → SUATTDRO 19:09
PROVIDERS: ADMIT Internal Medicine Nephrology; ATTEND Internal Medicine